=== PATIENT | female | born 1960 | race African-American/Black ===

== ENCOUNTER 2016-08-27 08:43 | Emergency (ER) | payer MEDICARE, MEDICAID ==
[2015-07-23 07:00] VITALS: BMI 25.7
[~2016-08-27 08:43] MED LIST: ASPIRIN325 MG PO; ASPIRIN81 MG PO; ATIVAN2 MG PO; CATAPRES0.1 MG PO; CELEXA20 MG PO; CHERATUSSIN AC473 ML PO; DIABETA2.5 MG PO; GLUCOPHAGE500 MG PO; HUMULIN R100 U/ML SC; HYDROCODON-ACE1 EAC7 PO; HYDROCODONE-APA1 TAB PO; ISOSORBIDE DINI30 MG PO; K-DUR20 MEQ PO; LEVAQUIN500 MG PO; LISINOPRIL10 MG NG; LISINOPRIL5 MG PO; LOPRESSOR25 MG PO; MACROBID100 MG PO; MEDROL DOSE PACK4 MG PO; METHOTREXATE2.5 MG; METHOTREXATE2.5 MG PO; METOPROLOL TAR100 MG PO; MICRO-K10 MEQ PO; NITROSTAT0.4 MG SL; NORCO 10/325 TA1 TA1 PO; NORVASC5 MG PO; NYSTATIN1 PWD TOPICAL; OXYCONTIN30 MG PO; PEPCID20 MG PO; PERCOCET 10/3251 TA1 PO; PLAVIX75 MG PO; PRAVACHOL40 MG PO; PREDNISONE10 MG PO; SINGULAIR10 MG PO; XANAX2 MG PO; ZANAFLEX4 MG PO; ZOFRAN4 MG PO
== END 2016-08-27 10:20 | disposition home or self-care (01) ==
LOC: D.ER 08:43
DX: S69.91XA Unspecified injury of right wrist, hand and finger(s), initial encounter (principal); X58.XXXA Exposure to other specified factors, initial encounter; Y93.89 Activity, other specified; Y92.89 Other specified places as the place of occurrence of the external cause

== ENCOUNTER 2016-09-25 01:27 | Emergency (ER) | payer MEDICARE, MEDICAID ==
[2015-07-23 07:00] VITALS: BMI 25.7
== END 2016-09-25 03:27 | disposition home or self-care (01) ==
LOC: D.ER 01:27
DX: M62.838 Other muscle spasm (principal); Z95.1 Presence of aortocoronary bypass graft; I50.9 Heart failure, unspecified

== ENCOUNTER 2016-09-27 17:01 | Emergency (ER) | payer MEDICARE, MEDICAID ==
[2015-07-23 07:00] VITALS: BMI 25.7
== END 2016-09-27 18:19 | disposition left against medical advice (07) ==
LOC: D.ER 17:01
DX: R52 Pain, unspecified (principal)

== ENCOUNTER → 2016-10-28 09:52 | Outpatient (CLI) | payer MEDICARE, MEDICAID ==
[2015-07-23 07:00] VITALS: BMI 25.7
== END | disposition home or self-care (01) ==
LOC: D.MRI 09:52
DX: R20.0 Anesthesia of skin (principal)

== ENCOUNTER 2016-11-22 19:37 | Emergency (ER) | payer MEDICARE ==
[2015-07-23 07:00] VITALS: BMI 25.7
== END 2016-11-22 20:50 | disposition home or self-care (01) ==
LOC: D.ER 19:37
DX: F41.9 Anxiety disorder, unspecified (principal); M54.2 Cervicalgia; F11.10 Opioid abuse, uncomplicated

== ENCOUNTER 2016-12-19 10:01 | Emergency (ER) | payer MEDICARE ==
[2015-07-23 07:00] VITALS: BMI 25.7
== END 2016-12-19 11:43 | disposition home or self-care (01) ==
LOC: D.ER 10:01
DX: G89.18 Other acute postprocedural pain (principal); M43.22 Fusion of spine, cervical region; Z95.1 Presence of aortocoronary bypass graft; Z95.5 Presence of coronary angioplasty implant and graft

== ENCOUNTER 2017-06-04 05:17 | Emergency (ER) | payer MEDICARE ==
[2015-07-23 07:00] VITALS: BMI 25.7
== END 2017-06-04 06:01 | disposition home or self-care (01) ==
LOC: D.ER 05:17
DX: S46.911A Strain of unspecified muscle, fascia and tendon at shoulder and upper arm level, right arm, initial encounter (principal); X50.0XXA Overexertion from strenuous movement or load, initial encounter; Y93.89 Activity, other specified; Y92.019 Unspecified place in single-family (private) house as the place of occurrence of the external cause

== ENCOUNTER 2017-07-16 19:06 | Emergency (ER) | payer MEDICARE ==
[2015-07-23 07:00] VITALS: BMI 25.7
== END 2017-07-16 20:10 | disposition home or self-care (01) ==
LOC: D.ER 19:06
DX: M54.12 Radiculopathy, cervical region (principal); M25.512 Pain in left shoulder; I50.9 Heart failure, unspecified; F17.200 Nicotine dependence, unspecified, uncomplicated

== ENCOUNTER 2017-09-08 12:12 | Inpatient (IN) | payer MEDICARE, MEDICAID ==
[~2017-09-08] VITALS: Ht 179.1 cm; Wt 78.6 kg
[~2017-09-08 12:12] MED LIST changes: -ISOSORBIDE DINI30 MG PO; +ISOSORBIDE MONO30 M1 PO; +XANAX1 MG PO; -XANAX2 MG PO
[2017-09-08 13:00] LABS: BASOPHILS 0.2 % (0-2); EOSINOPHILS 1.4 % (0-7); HEMATOCRIT 43.3 % (36.0-48.0); HEMOGLOBIN 14.9 g/dL (12-16); IMMATURE GRANULOCYTES 0.3 % (0-5); LYMPHOCYTES 17.3 % (15-50); MCH 29.4 pg (26.0-34.0); MCHC 34.4 g/dL (31.0-37.0); MCV 85.6 fL (80.0-100.0); MEAN PLATELET VOLUME 11.4 fL (7.4-10.4); MONOCYTES 7.1 % (2-11); NEUTROPHILS 73.7 % (40-80); RBC 5.06 10x6/uL (4.00-5.40); RDW 14.9 % (11.5-14.5)
[2017-09-08 13:02] LABS: PLATELET COUNT 150 10x3/uL (130-400)
[2017-09-08 13:28] LABS: ANION GAP 13.5 mmol/L (8-16); BILIRUBIN - TOTAL 1.4 mg/dL (0.2-1.3); CALCIUM 8.4 mg/dL (8.5-10.1); CARBON DIOXIDE 23.3 mmol/L (21.0-32.0); POTASSIUM - SERUM 3.8 mmol/L (3.5-5.1); PROTEIN - SERUM 7.5 g/dL (6.4-8.2)
[2017-09-08 13:41] LABS: HCG URINE NEGATIVE (NEGATIVE)
[2017-09-08 13:49] LABS: APPEARANCE HAZY (CLEAR); COLOR YELLOW (YELLOW); GLUCOSE NEGATIVE (NEGATIVE); NITRITE NEGATIVE (NEGATIVE); PROTEIN NEGATIVE (NEGATIVE)
[2017-09-08 13:50] LABS: BILIRUBIN NEGATIVE (NEGATIVE); KETONE NEGATIVE (NEGATIVE)
[2017-09-08 13:53] LABS: BACTERIA MODERATE /hpf (NONE SEEN); EPITHELIAL CELLS 0-5 /hpf (0-5); MUCUS <1+ /lpf (NONE SEEN); WHITE CELLS - URINE 25-50 /hpf (0-5)
[2017-09-08 15:34] VITALS: BP 125/84
[2017-09-08] MEDS ORDERED: NORVASC10 MG PO (16:01)
[2017-09-08] MEDS ORDERED: LIPITOR20 MG PO (16:18)
[2017-09-08] MEDS ORDERED: METOPROLOL TART25 MG PO (16:26)
[2017-09-08 20:33] VITALS: BP 108/66
[2017-09-09 05:38] LABS: BASOPHILS 0.1 % (0-2); HEMATOCRIT 40.5 % (36.0-48.0); HEMOGLOBIN 13.6 g/dL (12-16); IMMATURE GRANULOCYTES 0.3 % (0-5); LYMPHOCYTES 24.1 % (15-50); MCH 29.1 pg (26.0-34.0); MCHC 33.6 g/dL (31.0-37.0); MCV 86.7 fL (80.0-100.0); MEAN PLATELET VOLUME 11.5 fL (7.4-10.4); MONOCYTES 6.4 % (2-11); NEUTROPHILS 68.1 % (40-80); PLATELET COUNT 132 10x3/uL (130-400); RBC 4.67 10x6/uL (4.00-5.40); RDW 14.8 % (11.5-14.5)
[2017-09-09 05:41] LABS: WBC 7.8 10x3/uL (4.8-10.8)
[2017-09-09 05:50] VITALS: BP 140/84
[2017-09-09 06:12] LABS: ALBUMIN 2.6 g/dL (3.4-5.0); ALKALINE PHOSPHATASE 81 U/L (46-116); ALT (SGPT) 38 U/L (10-68); BILIRUBIN - TOTAL 0.79 mg/dL (0.2-1.3); CALC OSMOLALITY 284 mosm/kg (275-300); CALCIUM 8.2 mg/dL (8.5-10.1); CARBON DIOXIDE 25.3 mmol/L (21.0-32.0); CHLORIDE - SERUM 104 mmol/L (98-107); CREATININE - SERUM 0.8 mg/dL (0.6-1.3); GLUCOSE 162 mg/dL (74-106); POTASSIUM - SERUM 4.2 mmol/L (3.5-5.1); PROTEIN - SERUM 6.8 g/dL (6.4-8.2); SODIUM 140 mmol/L (136-145); UREA NITROGEN 18 mg/dL (7-18); eGFR NON AFRICAN AMERICAN 78 mL/min (90-120)
[2017-09-09 08:13] VITALS: BP 135/82
[2017-09-09 11:25] VITALS: BP 114/64
[2017-09-09 15:44] VITALS: BP 128/55
[2017-09-09 20:30] VITALS: BP 129/93
[2017-09-10 00:30] VITALS: BP 110/79
[2017-09-10 04:30] VITALS: BP 122/89
[2017-09-10 08:29] VITALS: BP 100/60
[2017-09-10 11:31] VITALS: BP 110/77
[2017-09-10 13:22] LABS: BASOPHILS 0.2 % (0-2); EOSINOPHILS 2.7 % (0-7); HEMATOCRIT 40.3 % (36.0-48.0); HEMOGLOBIN 13.1 g/dL (12-16); IMMATURE GRANULOCYTES 0.2 % (0-5); MCH 28.9 pg (26.0-34.0); MCHC 32.5 g/dL (31.0-37.0); MEAN PLATELET VOLUME 11.1 fL (7.4-10.4); MONOCYTES 5.9 % (2-11); PLATELET COUNT 152 10x3/uL (130-400); RBC 4.54 10x6/uL (4.00-5.40); WBC 9.6 10x3/uL (4.8-10.8)
[2017-09-10 13:23] LABS: MCV 88.8 fL (80.0-100.0)
[2017-09-10 13:40] LABS: ANION GAP 14.5 mmol/L (8-16); CREATININE - SERUM 0.9 mg/dL (0.6-1.3); POTASSIUM - SERUM 4.5 mmol/L (3.5-5.1)
[2017-09-10 15:47] VITALS: BP 98/75
[2017-09-10 20:30] VITALS: BP 100/63
[2017-09-11 00:30] VITALS: BP 129/85
[2017-09-11 04:30] VITALS: BP 123/85
[2017-09-11 05:07] LABS: BASOPHILS 0.2 % (0-2); EOSINOPHILS 4.3 % (0-7); HEMATOCRIT 39.4 % (36.0-48.0); IMMATURE GRANULOCYTES 0.2 % (0-5); LYMPHOCYTES 32.6 % (15-50); MCH 28.6 pg (26.0-34.0); MONOCYTES 8.9 % (2-11); NEUTROPHILS 53.8 % (40-80); PLATELET COUNT 177 10x3/uL (130-400); RBC 4.54 10x6/uL (4.00-5.40); RDW 14.6 % (11.5-14.5); WBC 8.3 10x3/uL (4.8-10.8)
[2017-09-11 05:09] LABS: MCV 86.8 fL (80.0-100.0)
[2017-09-11 05:29] LABS: CALC OSMOLALITY 285 mosm/kg (275-300); CARBON DIOXIDE 27.3 mmol/L (21.0-32.0); CHLORIDE - SERUM 109 mmol/L (98-107); CREATININE - SERUM 0.8 mg/dL (0.6-1.3); SODIUM 144 mmol/L (136-145); UREA NITROGEN 16 mg/dL (7-18); eGFR NON AFRICAN AMERICAN 78 mL/min (90-120)
[2017-09-11 05:38] LABS: GLUCOSE 69 mg/dL (74-106)
[2017-09-11 08:21] VITALS: BP 138/85
[2017-09-11 12:15] VITALS: BP 133/101
[2017-09-11 17:24] VITALS: BP 126/98
[2017-09-11 20:00] VITALS: BP 102/81
[2017-09-12 05:59] LABS: BASOPHILS 0.2 % (0-2); EOSINOPHILS 3.8 % (0-7); HEMATOCRIT 40.5 % (36.0-48.0); HEMOGLOBIN 13.5 g/dL (12-16); IMMATURE GRANULOCYTES 0.7 % (0-5); LYMPHOCYTES 38.6 % (15-50); MCH 28.9 pg (26.0-34.0); MCHC 33.3 g/dL (31.0-37.0); MCV 86.7 fL (80.0-100.0); MEAN PLATELET VOLUME 11.4 fL (7.4-10.4); MONOCYTES 10.5 % (2-11); NEUTROPHILS 46.2 % (40-80); RBC 4.67 10x6/uL (4.00-5.40); RDW 14.4 % (11.5-14.5); WBC 8.4 10x3/uL (4.8-10.8)
[2017-09-12 06:23] LABS: CALC OSMOLALITY 282 mosm/kg (275-300); CALCIUM 8.2 mg/dL (8.5-10.1); CARBON DIOXIDE 26.4 mmol/L (21.0-32.0); CHLORIDE - SERUM 107 mmol/L (98-107); CREATININE - SERUM 0.8 mg/dL (0.6-1.3); POTASSIUM - SERUM 3.7 mmol/L (3.5-5.1); SODIUM 143 mmol/L (136-145); UREA NITROGEN 12 mg/dL (7-18); eGFR NON AFRICAN AMERICAN 78 mL/min (90-120)
[2017-09-12 06:26] LABS: PLATELET COUNT 222 10x3/uL (130-400)
[2017-09-12 06:29] LABS: GLUCOSE 55 mg/dL (74-106)
[2017-09-12 06:46] VITALS: BP 77/41
[2017-09-12 08:51] VITALS: BP 96/70
[2017-09-12 12:29] VITALS: BP 121/88
[2017-09-12 13:55] VITALS: Ht 179.1 cm; Wt 78.6 kg
[2017-09-12] MEDS ORDERED: ZITHROMAX250 MG PO (13:58)
[2017-09-12] MEDS ORDERED: TAMIFLU75 MG PO (13:59)
[2017-09-12 17:28] VITALS: BP 121/85
== END 2017-09-12 17:47 | disposition home or self-care (01) | DRG 194 ==
LOC: D.ER 12:12 → D.EDHOLD 14:33 → D.M2 14:33
PROVIDERS: Family Medicine
DX: J10.00 Influenza due to other identified influenza virus with unspecified type of pneumonia (principal); N39.0 Urinary tract infection, site not specified; J98.11 Atelectasis; F41.8 Other specified anxiety disorders; E11.65 Type 2 diabetes mellitus with hyperglycemia; I10 Essential (primary) hypertension; M06.9 Rheumatoid arthritis, unspecified; I25.10 Atherosclerotic heart disease of native coronary artery without angina pectoris; Z95.5 Presence of coronary angioplasty implant and graft; Z95.1 Presence of aortocoronary bypass graft; Z86.73 Personal history of transient ischemic attack (TIA), and cerebral infarction without residual deficits

== ENCOUNTER 2017-10-09 01:34 | Emergency (ER) | payer MEDICARE ==
[2017-09-12 13:55] VITALS: BMI 24.5
[~2017-10-09 01:34] MED LIST changes: +LIPITOR20 MG PO; +METOPROLOL TART25 MG PO; +NORVASC10 MG PO; +TAMIFLU75 MG PO; +ZITHROMAX250 MG PO
== END 2017-10-09 02:53 | disposition home or self-care (01) ==
LOC: D.ER 01:34
DX: M54.12 Radiculopathy, cervical region (principal); M54.2 Cervicalgia

== ENCOUNTER 2017-12-29 15:14 | Inpatient (IN) | payer MEDICARE ==
[~2017-12-29] VITALS: Ht 179.1 cm; Wt 82.3 kg
--- NOTE | ~2017-12-29 | EC ---
PATIENT:MAE CHAHAL DATE OF SERVICE: 12/30/17 SEX: F MEDICAL RECORD: [id number] DATE OF : 58 LOCATION:D.MS [facility] AGE OF PATIENT: 57 ADMISSION DATE: 12/30/17 REFERRING PHYSICIAN: INTERPRETING PHYSICIAN: ROMERO OBRIEN MD ECHOCARDIOGRAM REPORT ECHO CHARGES 4 ECHO COMPLETE Date: 01/01 CLINICAL DIAGNOSIS: BRONCHITS, PLEURITIC CP ECHOCARDIOGRAPHIC MEASUREMENTS (adult normal given) AC root (d.<3.7cm) 2.4 cm LV Septum d (<1.2 cm> 1.4 cm Valve Excursion 1.5 cm LV Septum (systole) 2.0 cm Left Atria (s.<4.0cm> 3.9 cm LVPW d(<1.2cm) 0.9 cm RV (d.<2.3cm) 2.6 cm LVPW (sytole) 1.4 cm LV diastole(<5.6CM) 4.5 cm MV E-F(>70mm/sec) cm LV systole 2.8 cm LVOT Diameter 2.0 cm MV exc.(>10mm) cm Est.ejection fraction (50-75%) % DOPPLER: LVIT cm/sec A 66 cm/sec E 80 cm/sec LA cm/sec RVSP 39 mmHg LVOT 108 cm/sec AOP1/2T m/s Asc. Ao 127 cm/sec RVOT 64 cm/sec RA cm/sec PA 67 cm/sec AV Gradient Peak 6.4 mmHg AV Mean 3.5 mmHg AV Area 2.5 cm MV Gradient Peak 4.2 mmHg MV Mean 1.2 mmHg MV Area cm COMMENTS: Partner Marketing Intern: Murphy DYER Survival Equipment Repairer: Greg Alvares TAPE# PACS Pericardial Effusion N DATE OF SERVICE: 01/02/2018 FINDINGS: 1. Left ventricular chamber size is within normal limits. Left ventricular systolic function is normal. Overall ejection fraction estimated at 60%. 2. Left atrium is within normal limits at 4.0 cm. Right atrium and right ventricle chamber sizes are mildly dilated. 3. Valvular structures have normal structure and motion. 4. Doppler interrogation reveals moderate mitral regurgitation, moderate tricuspid regurgitation, no other valvular insufficiency or stenosis. Pulmonary ECHOCARDIOGRAM REPORT [id number] MAE CHAHAL systolic pressure is estimated at 39 mmHg. 5. No evidence of pericardial effusion or left ventricular thrombus. TRANSINT:[id number] Voice Confirmation ID: [id number] DOCUMENT ID: [id number] ROMERO OBRIEN MD at 1713 CC: [id number] DICTATION DATE: 01/02/18 1244 LOAN REVIEWER: 01/02/18 1254 DIS IN 01/02/18 [facility] [address] [id number]
--- NOTE | ~2017-12-29 | MORECARE ---
CASE MANAGEMENT DISCHARGE SUMMARY PATIENT: SOLANGE WELLS UNIT: [id number] ADM DATE: 12/30/17 AGE: 57 : 58 SEX: F ROOM/BED: D.2204 AUTHOR: CASE, TUBE BUFFER PHYSICIAN: REFERRING PHYSICIAN: SUKUMAR ESPINOZA MD DATE OF SERVICE: 12/30/17 Discharge Plan Patient Name: SOLANGE WELLS Facility[facility]:[place] : 1960 Planned Disposition: Home Anticipated Discharge Date: 01/02/18 Discharge Date: 01/02/2018 Expected LOS: 3 Initial Reviewer: [email or web address] Initial Review Date: 12/29/2017 Generated: 01/04/18 11:26 am Comments DCP- Discharge Planning Updated by [email or web address]: Gertrude Senior on 01/02/18 11:[address] Patient Name: SOLANGE WELLS Admission Status: ER Accout number: [id number] Admission Date: 12-30-2017 : 1960 Admission Diagnosis: Attending: SUKUMAR ESPINOZA Current LOS: 3 Anticipated DC Date: 01-02-2018 Planned Disposition: Home Primary Insurance: MEDICARE A & B Discharge Planning Comments: CM met with patient about discharge planning needs. Pt states plans to dc home. Friend Candi to package pick up. Denies any needs at this time. CM will continue to follow and assist as needed with dc planning/needs. Title Vehicle Service Attendant: Gertrude Senior DCPIA - Discharge Planning Initial Assessment Updated by [email or web address]: Gertrude Senior on 01/02/18 12:15 pm * Is the patient Alert and Oriented? Yes * How many steps to enterexit or inside your home? * PCP Jose Antonio * Pharmacy [facility] * Preadmission Environment Home Alone * ADLs Independent * Equipment None * List name and contact numbers for known caregivers / representatives who currently or will assist patient after discharge: hector Sierra, * Additional services required to return to the preadmission environment? No * Can the patient safely return to the preadmission environment? Yes * Has this patient been hospitalized within the prior 30 days at any hospital? No Coverage Notice Reviewer: [id number] Teo Schafer Notice Issued Date-Time: 12/30/2017 15:00 Notice Type: Medicare Outpatient Observation Notice Notice Delivered To: Patient Relationship to Patient: Self Print And Pattern Designer Name: Solange Wells Delivery Method: - Emelia Days: Prior Verbal Notification: Recipient Understood Notice: Recipient Signature: Med Rec Note Co-signed by Attending: Coverage Notice Comment: Reviewer: [email or web address] Teo Senior Notice Issued Date-Time: 01/02/2018 12:11 Notice Type: IM Discharge Notice Notice Delivered To: Patient Relationship to Patient: Self Print And Pattern Designer Name: Delivery Method: HAND - Hand Delivered Emelia Days: Prior Verbal Notification: Recipient Understood Notice: Yes Recipient Signature: Yes Med Rec Note Co-signed by Attending: Coverage Notice Comment: Patient Name: SOLANGE WELLS Page [phone] All edits/amendments must be made on the electronic document DICTATION DATE: 01/04/18 1025 TACTICAL DEBRIEFER OFFICER: 01/04/18 1025 RPT#: [id number] DC DATE:01/02/18 STATUS: DIS IN [facility] [address] [place] [address] END OF REPORT
[2017-12-29 15:50] LABS: BASOPHILS 0.3 % (0-2); EOSINOPHILS 1.5 % (0-7); HEMATOCRIT 46.5 % (36.0-48.0); HEMOGLOBIN 16.2 g/dL (12-16); IMMATURE GRANULOCYTES 0.5 % (0-5); LYMPHOCYTES 29.6 % (15-50); MCHC 34.8 g/dL (31.0-37.0); MCV 86.1 fL (80.0-100.0); MEAN PLATELET VOLUME 10.8 fL (7.4-10.4); MONOCYTES 8.4 % (2-11); NEUTROPHILS 59.7 % (40-80); PLATELET COUNT 193 10x3/uL (130-400); RDW 14.9 % (11.5-14.5); WBC 7.6 10x3/uL (4.8-10.8)
[2017-12-29 16:11] LABS: ALBUMIN 3.2 g/dL (3.4-5.0); ALKALINE PHOSPHATASE 115 U/L (46-116); ALT (SGPT) 35 U/L (10-68); BILIRUBIN - TOTAL 1.37 mg/dL (0.2-1.3); CALC OSMOLALITY 273 mosm/kg (275-300); CALCIUM 8.4 mg/dL (8.5-10.1); CARBON DIOXIDE 27.1 mmol/L (21.0-32.0); CHLORIDE - SERUM 105 mmol/L (98-107); CREATININE - SERUM 0.9 mg/dL (0.6-1.3); GLUCOSE 88 mg/dL (74-106); POTASSIUM - SERUM 3.4 mmol/L (3.5-5.1); PROTEIN - SERUM 7.4 g/dL (6.4-8.2); SODIUM 138 mmol/L (136-145); UREA NITROGEN 9 mg/dL (7-18); eGFR NON AFRICAN AMERICAN 68 mL/min (90-120)
[2017-12-29 16:21] LABS: CKMB 9.2 U/L (0.0-3.6); CREATINE KINASE 515 UL (21-215); PRO BNP 287 pg/mL (0-125)
[2017-12-29 16:25] LABS: TROPONIN-I < 0.017 ng/mL (0.000-0.060)
[2017-12-29 16:35] LABS: APTT 31.2 SECONDS (22.8-39.4); INR 1.01 (0.85-1.17); PROTIME 12.9 SECONDS (11.6-15.0)
[2017-12-29 16:51] LABS: D-DIMER-QUANTITATIVE 0.46 ug/mLFEU (0.20-0.54)
[2017-12-29 17:25] VITALS: BP 129/92
[2017-12-29 18:46] VITALS: BP 127/96
[2017-12-29 21:21] LABS: CKMB 7.6 U/L (0.0-3.6); CREATINE KINASE 439 UL (21-215); TROPONIN-I 0.019 ng/mL (0.000-0.060)
[2017-12-29] MEDS ORDERED: NEURONTIN 300300 MG PO (22:07)
[2017-12-29 23:00] VITALS: BP 111/67; Ht 179.1 cm; Wt 82.3 kg
[2017-12-30] VITALS: BP 110/77
[2017-12-30 04:01] LABS: CKMB 10.2 U/L (0.0-3.6); CREATINE KINASE 466 UL (21-215)
[2017-12-30 04:02] LABS: TROPONIN-I < 0.017 ng/mL (0.000-0.060)
[2017-12-30 05:31] VITALS: BP 109/71
[2017-12-30 08:39] LABS: CKMB 10.2 U/L (0.0-3.6); CREATINE KINASE 460 UL (21-215); TROPONIN-I 0.017 ng/mL (0.000-0.060)
[2017-12-30 08:49] VITALS: BP 105/73
[2017-12-30 10:33] LABS: ALBUMIN 2.6 g/dL (3.4-5.0); ANION GAP 17.3 mmol/L (8-16); BILIRUBIN - TOTAL 0.85 mg/dL (0.2-1.3); CALCIUM 7.8 mg/dL (8.5-10.1); CARBON DIOXIDE 24.6 mmol/L (21.0-32.0); CREATININE - SERUM 0.9 mg/dL (0.6-1.3); POTASSIUM - SERUM 3.9 mmol/L (3.5-5.1); PROTEIN - SERUM 6.4 g/dL (6.4-8.2)
[2017-12-30 10:45] LABS: BASOPHILS 0.4 % (0-2); EOSINOPHILS 2.8 % (0-7); HEMATOCRIT 42.9 % (36.0-48.0); HEMOGLOBIN 14.5 g/dL (12-16); IMMATURE GRANULOCYTES 0.4 % (0-5); LYMPHOCYTES 44.6 % (15-50); MCH 29.5 pg (26.0-34.0); MCHC 33.8 g/dL (31.0-37.0); MCV 87.4 fL (80.0-100.0); MEAN PLATELET VOLUME 10.8 fL (7.4-10.4); NEUTROPHILS 40.8 % (40-80); PLATELET COUNT 157 10x3/uL (130-400); RBC 4.91 10x6/uL (4.00-5.40); RDW 14.8 % (11.5-14.5)
[2017-12-30 10:46] LABS: WBC 5.3 10x3/uL (4.8-10.8)
[2017-12-30 12:38] VITALS: BP 136/86
[2017-12-30 16:57] VITALS: BP 106/56
[2017-12-30 20:30] VITALS: BP 119/87
[2017-12-31 04:30] VITALS: BP 123/85
[2017-12-31 05:04] LABS: BASOPHILS 0.2 % (0-2); EOSINOPHILS 0.5 % (0-7); HEMATOCRIT 39.4 % (36.0-48.0); HEMOGLOBIN 13.4 g/dL (12-16); IMMATURE GRANULOCYTES 0.2 % (0-5); LYMPHOCYTES 39.4 % (15-50); MCH 29.8 pg (26.0-34.0); MCV 87.6 fL (80.0-100.0); MEAN PLATELET VOLUME 10.9 fL (7.4-10.4); MONOCYTES 8.8 % (2-11); NEUTROPHILS 50.9 % (40-80); PLATELET COUNT 160 10x3/uL (130-400); RDW 14.9 % (11.5-14.5); WBC 5.9 10x3/uL (4.8-10.8)
[2017-12-31 05:36] LABS: ALBUMIN 2.6 g/dL (3.4-5.0); ANION GAP 9.3 mmol/L (8-16); BILIRUBIN - TOTAL 0.58 mg/dL (0.2-1.3); CALCIUM 7.8 mg/dL (8.5-10.1); CARBON DIOXIDE 27.9 mmol/L (21.0-32.0); CREATININE - SERUM 0.9 mg/dL (0.6-1.3); POTASSIUM - SERUM 4.2 mmol/L (3.5-5.1); PROTEIN - SERUM 5.9 g/dL (6.4-8.2)
[2017-12-31 09:10] VITALS: BP 147/102
[2017-12-31 14:32] VITALS: BP 129/88
[2017-12-31 17:00] VITALS: BP 126/89
[2017-12-31 21:58] VITALS: BP 121/85
[2018-01-01 05:44] LABS: BASOPHILS 0.1 % (0-2); EOSINOPHILS 0.9 % (0-7); HEMATOCRIT 39.1 % (36.0-48.0); HEMOGLOBIN 13.4 g/dL (12-16); IMMATURE GRANULOCYTES 0.4 % (0-5); LYMPHOCYTES 37.4 % (15-50); MCH 29.7 pg (26.0-34.0); MCHC 34.3 g/dL (31.0-37.0); MCV 86.7 fL (80.0-100.0); MEAN PLATELET VOLUME 11.6 fL (7.4-10.4); MONOCYTES 8.3 % (2-11); NEUTROPHILS 52.9 % (40-80); PLATELET COUNT 167 10x3/uL (130-400); RBC 4.51 10x6/uL (4.00-5.40); RDW 14.8 % (11.5-14.5); WBC 6.8 10x3/uL (4.8-10.8)
[2018-01-01 06:08] LABS: ALBUMIN 2.7 g/dL (3.4-5.0); ALKALINE PHOSPHATASE 93 U/L (46-116); ALT (SGPT) 34 U/L (10-68); BILIRUBIN - TOTAL 0.46 mg/dL (0.2-1.3); CALC OSMOLALITY 277 mosm/kg (275-300); CALCIUM 8.2 mg/dL (8.5-10.1); CARBON DIOXIDE 26.3 mmol/L (21.0-32.0); CHLORIDE - SERUM 109 mmol/L (98-107); CREATININE - SERUM 0.7 mg/dL (0.6-1.3); GLUCOSE 80 mg/dL (74-106); POTASSIUM - SERUM 3.7 mmol/L (3.5-5.1); PROTEIN - SERUM 6.4 g/dL (6.4-8.2); SODIUM 141 mmol/L (136-145); UREA NITROGEN 8 mg/dL (7-18); eGFR NON AFRICAN AMERICAN > 90 mL/min (90-120)
[2018-01-01 06:35] VITALS: BP 138/95
[2018-01-01 09:12] VITALS: BP 120/86
[2018-01-01 23:15] VITALS: BP 135/89
[2018-01-02 05:00] VITALS: BP 133/99
[2018-01-02 06:19] LABS: BASOPHILS 0.3 % (0-2); EOSINOPHILS 1.4 % (0-7); HEMATOCRIT 42.9 % (36.0-48.0); HEMOGLOBIN 14.6 g/dL (12-16); IMMATURE GRANULOCYTES 0.3 % (0-5); LYMPHOCYTES 38.6 % (15-50); MCH 29.6 pg (26.0-34.0); MCV 86.8 fL (80.0-100.0); MONOCYTES 8.5 % (2-11); NEUTROPHILS 50.9 % (40-80); PLATELET COUNT 184 10x3/uL (130-400); RBC 4.94 10x6/uL (4.00-5.40); RDW 14.8 % (11.5-14.5); WBC 7.3 10x3/uL (4.8-10.8)
[2018-01-02 06:38] LABS: ALBUMIN 2.8 g/dL (3.4-5.0); ANION GAP 9.7 mmol/L (8-16); BILIRUBIN - TOTAL 0.51 mg/dL (0.2-1.3); CALCIUM 8.3 mg/dL (8.5-10.1); CARBON DIOXIDE 26.7 mmol/L (21.0-32.0); POTASSIUM - SERUM 3.4 mmol/L (3.5-5.1); PROTEIN - SERUM 6.8 g/dL (6.4-8.2)
[2018-01-02 06:40] LABS: CREATININE - SERUM 0.9 mg/dL (0.6-1.3)
[2018-01-02 08:37] VITALS: BP 134/95
[2018-01-02] MEDS ORDERED: LEVAQUIN500 MG PO (11:17)
[2018-01-02 12:29] VITALS: BP 125/90
[2018-01-02] MEDS ORDERED: ROBAXIN-750750 MG PO (18:46)
[2018-01-02] MEDS ORDERED: PREDNISONE20 MG PO (18:46)
== END 2018-01-02 14:50 | disposition home or self-care (01) | DRG 312 ==
LOC: D.ER 15:14 → OBSVTIME 20:31 → D.EDHOLD 20:31 → D.MS 20:31
PROVIDERS: Family Medicine
DX: R55 Syncope and collapse (principal); J20.9 Acute bronchitis, unspecified; R09.82 Postnasal drip; E11.65 Type 2 diabetes mellitus with hyperglycemia; Z79.4 Long term (current) use of insulin; I10 Essential (primary) hypertension; I25.10 Atherosclerotic heart disease of native coronary artery without angina pectoris; Z95.1 Presence of aortocoronary bypass graft; I08.1 Rheumatic disorders of both mitral and tricuspid valves; K21.9 Gastro-esophageal reflux disease without esophagitis; F41.9 Anxiety disorder, unspecified; M06.9 Rheumatoid arthritis, unspecified; Z87.891 Personal history of nicotine dependence

== ENCOUNTER 2018-01-02 18:02 | Emergency (ER) | payer MEDICARE ==
[~2018-01-02] VITALS: Ht 179.1 cm; Wt 82.3 kg
[~2018-01-02 18:02] MED LIST changes: +NEURONTIN 300300 MG PO
[2018-01-02 18:08] VITALS: Ht 179.1 cm; Wt 82.3 kg
[2018-01-02] MEDS ORDERED: ROBAXIN-750750 MG PO (18:46)
[2018-01-02] MEDS ORDERED: PREDNISONE20 MG PO (18:46)
[2018-01-02 19:40] VITALS: BP 132/73
== END 2018-01-02 19:40 | disposition home or self-care (01) ==
LOC: D.ER 18:02
DX: M25.511 Pain in right shoulder (principal); Z86.73 Personal history of transient ischemic attack (TIA), and cerebral infarction without residual deficits; E11.9 Type 2 diabetes mellitus without complications; I10 Essential (primary) hypertension; K21.9 Gastro-esophageal reflux disease without esophagitis

== ENCOUNTER 2018-01-26 12:33 | Emergency (ER) | payer MEDICARE ==
[~2018-01-26] VITALS: Ht 179.1 cm; Wt 83.6 kg
[~2018-01-26 12:33] MED LIST changes: +PREDNISONE20 MG PO; +ROBAXIN-750750 MG PO
[2018-01-26 13:03] VITALS: BP 157/112; Ht 179.1 cm; Wt 83.6 kg
[2018-01-26] MEDS ORDERED: HYDROCODONE-APA1 TAB PO (16:37)
== END 2018-01-26 16:49 | disposition home or self-care (01) ==
LOC: D.ER 12:33
DX: M54.12 Radiculopathy, cervical region (principal); Z86.73 Personal history of transient ischemic attack (TIA), and cerebral infarction without residual deficits; I10 Essential (primary) hypertension

== ENCOUNTER 2018-02-16 12:38 | Emergency (ER) | payer MEDICARE ==
[~2018-02-16] VITALS: Ht 179.1 cm; Wt 81.6 kg
[2018-02-16 12:52] VITALS: Ht 179.1 cm; Wt 81.6 kg
[2018-02-16 14:22] LABS: BASOPHILS 0.2 % (0-2); EOSINOPHILS 0.1 % (0-7); HEMATOCRIT 45.7 % (36.0-48.0); HEMOGLOBIN 15.7 g/dL (12-16); IMMATURE GRANULOCYTES 0.6 % (0-5); LYMPHOCYTES 11.1 % (15-50); MCH 30.1 pg (26.0-34.0); MCHC 34.4 g/dL (31.0-37.0); MCV 87.7 fL (80.0-100.0); MONOCYTES 5.6 % (2-11); NEUTROPHILS 82.4 % (40-80); PLATELET COUNT 213 10x3/uL (130-400); RBC 5.21 10x6/uL (4.00-5.40); WBC 10.6 10x3/uL (4.8-10.8)
[2018-02-16 14:29] LABS: INR 0.97 (0.85-1.17); PROTIME 12.5 SECONDS (11.6-15.0)
[2018-02-16 14:39] LABS: ALBUMIN 3.2 g/dL (3.4-5.0); ALKALINE PHOSPHATASE 91 U/L (46-116); ALT (SGPT) 30 U/L (10-68); BILIRUBIN - TOTAL 1.12 mg/dL (0.2-1.3); CALC OSMOLALITY 283 mosm/kg (275-300); CALCIUM 8.5 mg/dL (8.5-10.1); CARBON DIOXIDE 25.9 mmol/L (21.0-32.0); CHLORIDE - SERUM 107 mmol/L (98-107); CREATININE - SERUM 1.2 mg/dL (0.6-1.3); POTASSIUM - SERUM 4.3 mmol/L (3.5-5.1); PROTEIN - SERUM 7.5 g/dL (6.4-8.2); SODIUM 141 mmol/L (136-145); UREA NITROGEN 14 mg/dL (7-18); eGFR NON AFRICAN AMERICAN 49 mL/min (90-120)
[2018-02-16 14:40] LABS: GLUCOSE 137 mg/dL (74-106)
[2018-02-16 14:49] LABS: C-REACTIVE PROTEIN 0.4 mg/dL (0.0-0.9); CKMB 3.6 U/L (0.0-3.6); CREATINE KINASE 119 UL (21-215)
[2018-02-16 14:53] LABS: TROPONIN-I < 0.017 ng/mL (0.000-0.060)
[2018-02-16 16:15] VITALS: BP 118/72
== END 2018-02-16 16:16 | disposition home or self-care (01) ==
LOC: D.ER 12:38
PROVIDERS: Family Medicine
DX: M66.0 Rupture of popliteal cyst (principal); M79.605 Pain in left leg; Z86.73 Personal history of transient ischemic attack (TIA), and cerebral infarction without residual deficits; I10 Essential (primary) hypertension; F17.200 Nicotine dependence, unspecified, uncomplicated

== ENCOUNTER 2018-08-31 13:13 | Outpatient (CLI) | payer MEDICARE ==
[~2018-08-31] VITALS: Ht 179.1 cm; Wt 68.2 kg
--- NOTE | ~2018-08-31 | HEMODYNAMI ---
PATIENT:MAE CHAHAL MEDICAL RECORD: [id number] : 58 LOCATION:[facility] ADMISSION DATE: 08/31/18 Generatedon:08/31/201816:18 Patient name: MAE CHAHAL Patient #: [id number] SSN: : 1960 Date of study: 08/31/2018 Page: Of Hemodynamic Procedure Report Patient Data Patient Demographics Procedure consent was obtained First Name: MAE Gender: Female Last Name: FELA : 1960 Patient #: [id number] Age: 58 year(s) Race: Black Additional ID: [id number] Contact details Address: [address] [place] [address] State: [place] City: [facility] Zip code: [address] Past Medical History Allergies Allergen Reaction Date Comments Reported Other 07/23/2015 CODIENE,STATINS,WELLBUTRIN allergy Admission Admission Data Admission Date: 08/31/2018 Admission Time: 13:13 Height (in.): 70.47 BSA: 2.13 (m2) Height (cm.): 179 BMI: 29.34 (kg/m2) Weight (lbs.): 207.24 Weight (kg.): 94 Lab Results Lab Result Date: 08/31/2018 Lab Result Time: 0:00 Biochemistry Name Units Result Min Max BUN mg/dl 22 --(----)-* 7 18 Creatinine mg/dl 1.1 --(--*-)-- 0.6 1.3 CBC Name Units Result Min Max Hemoglobin g/dl 14.3 --(*---)-- 13.5 17.5 Procedure Procedure Types Cath Procedure Diagnostic Procedure LHC LHC w/Coronaries w/Grafts Sedation Charges Moderate Sedation up to 15 minutes PCI Procedure Coronary Stent Coronary Stent Initial Procedure Description Procedure Date Procedure Date: 08/31/2018 Procedure Start Time: 15:56 Procedure End Time: 16:15 Procedure Staff Name Function Baudilio Velasquez MD Performing Physician Liz Guy RT Scrub [facility] RT Monitor Fidelina Roach RT Monitor Christen Molina RN Manager Appointment Procedure Data Cath Procedure Fluoroscopy Diagnostic fluoroscopy Total fluoroscopy Time: 4.1 time: 4.1 min min Diagnostic fluoroscopy Total fluoroscopy dose: 751 dose: 751 mGy mGy Contrast Material Contrast Material Type Amount (ml) Isovue 300 99 Entry Location Entry Primary Successful Side Size Upsize Upsize Entry Closure Succes sful Closure Location (Fr) 1 (Fr) 2 (Fr) Remarks Device Remarks Femoral Right 5 Fr 6 Fr Exoseal artery Short Estimated blood loss: 5 ml Diagnostic catheters Device Type Used For End Catheter Placement MULTIPACK Pigtail 5 Fr LV Angiography catheter MULTIPACK JL 4.0 5Fr Left Coronary catheter Angiography MULTIPACK 3DRC 5Fr Right Coronary catheter Angiography DIAGNOSTIC IM 5Fr Multi-vessel catheter ([id number]) Angiography Procedure Complications No complications Procedure Medications Medication Administration Route Dosage 0.9% NaCl I.V. 100 ml/hr Oxygen etCO2 Nasal cannula 2 l/min Heparin Flush Bag added to field 2 bags (1000units/500ml NS) Lidocaine 2% added to field 20 Versed I.V. 2 mg Fentanyl I.V. 50 mcg Versed I.V. 2 mg Fentanyl I.V. 50 mcg Heparin Bolus I.V. 4000 units Integrilin (Bolus I.V. 8.5 ml 2mg/ml) Hemodynamics Rest BSA: 2.13 (m2) O2 Consumption: Estimated: 190.34 (ml/min) O2 Consumption indexed : Estimated:89.36 (ml/min/m) Heart Rate: 55 (bpm) Pressure Samples Time Site Value (mmHg) Purpose Heart Use Rate(bpm) 15:59 LV 24/20,16 Snapshot 82 Snapshots Pre Cath Intra NCS Post Cath Vital Signs Time Heart Resp SPO2 etCO2 NIBP (mmHg) Rhythm Pain Sedation Rate (ipm) (%) (mmHg) Status Level (bpm) 15:44:59 55 17 98 28 176/114(153) SB 0 (11) 10(A) , No pain 15:49:19 55 19 98 27.7 159/106(131) SB 0 (11) 10(A) , No pain 15:53:33 59 16 100 31.4 163/96(122) SB 0 (11) 9(A) , No pain 15:57:49 57 12 100 33.7 137/93(114) SB 0 (11) 9(A) , No pain 16:01:57 68 12 99 33 135/92(109) NSR 0 (11) 9(A) , No pain 16:06:03 63 12 99 30.7 129/91(101) NSR 0 (11) 9(A) , No pain 16:10:06 66 13 99 33.7 141/96(125) NSR 0 (11) 9(A) , No pain 16:14:14 69 13 100 31.5 139/96(108) NSR 0 (11) 10(A) , No pain Medications Time Medication Route Dose Verified Delivered Reason Notes Effectiveness by by 15:43:36 0.9% NaCl I.V. 100 Hebert Hebert Per physician ml/hr Vijaya Lilly RN RN 15:43:45 Oxygen etCO2 2 Hebert Hebert for low 02 sats Nasal l/min Vijaya Lilly cannula RN RN 15:43:55 Heparin Flush added 2 Hebert Hebert used for Bag to bags Lorigan Vijaya procedure (1000units/500ml field JULES RN NS) 15:44:04 Lidocaine 2% added 20ml Hebert Hebert for local to vial Lorigan Lorigan anesthetic field JULES RN 15:47:12 Versed I.V. 2 mg Baudilio Hebert for sedation Ron Lilly RN 15:47:27 Fentanyl I.V. 50 Baudilio Hebert for sedation mcg Ron Lilly RN 15:52:44 Versed I.V. 2 mg Baudilio Christen for sedation Ron Molina RN 15:52:52 Fentanyl I.V. 50 Baudilio Christen for sedation mcg Ron Molina RN 16:08:05 Heparin Bolus I.V. 4000 Baudilio Mcgheeyla for verif ied units Ron Molina anticoagulation with Dr. DHARA Velasquez 16:08:16 Integrilin I.V. 8.5 Baudilio Christen for waste d (Bolus 2mg/ml) ml Ron Molina antiplatelet 1.5mL RN therapy Procedure Log Time Note 15:27:56 Patient Height : 70.47 inches 15:27:59 Patient Weight : 207.24 lbs 15:28:23 Lab Result : Hemoglobin 14.3 g/dl 15:28:23 Lab Result : Creatinine 1.1 mg/dl 15:28:23 Lab Result : BUN 22 mg/dl 15:29:13 Diagnostic Cath status Elective 15:29:15 Hebert Lilly RN sent for patient. Start room use. 15:29:18 Time tracking: Regular hours (M-F 7:00 - 5:00) 15:29:25 Plan of Care:Hemodynamics will remain stable., Cardiac rhythm will remain stable., Comfort level will be maintained., Respiratory function will remain adequate., Patient/ family verbilizes understanding of procedure., Procedure tolerated without complication., Recovers from procedure without complications.. 15:29:31 Patient received from ED to CCL 2 Alert and oriented. Tansferred to table in Supine position. 15:41:51 Signed procedure consent form obtained from patient. 15:41:52 Warm blankets applied, and angel hugger turned on for patient comfort. 15:41:52 Warm blankets applied, and angel hugger turned on for patient comfort. 15:41:54 Correct patient and procedure confirmed by team. 15:41:55 ECG and BP/O2 sat monitors applied to patient. 15:41:58 Full Disclosure recording started 15:42:03 H&P Date Dictated: 08/31/2018 ER History on chart.. 15:42:04 Pre-procedure instructions explained to patient. 15:42:04 Pre-op teaching completed and patient verbalized understanding. 15:42:06 Patient NPO since Midnight. 15:42:29 PRE LOADED ON PLAVIX IN ER 15:42:31 Patient diabetic? Yes. 15:42:32 If diabetic: On Metformin? No 15:42:34 Previous problem with sedation/anesthesia? No ? 15:42:36 Snore? Yes 15:42:37 Sleep apnea? No 15:42:38 Deviated septum? No 15:42:39 Opens mouth fully? Yes 15:42:40 Sticks out tongue? Yes 15:42:41 Airway obstruction? No ? 15:42:43 Dentures? No ? 15:42:46 Pre procedure: right dorsailis pedis pulse 2+ Normal; easily identifiable; not easily obliterated 15:43:10 IV patent on arrival in left antecubital with 0.9% NaCl at [facility]. 15:43:22 Lab results completed and on chart. 15:43:24 Right groin area was prepped with chlora-prep and draped in sterile fashion 15:43:25 Alarms reviewed by R. N. 15:43:25 Sharps counted by scrub and verified by R.N. 15:43:28 Use device set Femoral Dx 15:43:30 ACIST Syringe (92273) opened to sterile field. 15:43:30 Bag Decanter (2002S) opened to sterile field. 15:43:31 ACIST Hand Control (16839) opened to sterile field. 15:43:31 ACIST Manifold (33219) opened to sterile field. 15:43:32 Tegaderm 4 x 4 (1626W) opened to sterile field. 15:43:34 Medline Cath Pack ([id number]) opened to sterile field. 15:43:34 DIAGNOSTIC WIRE .035 260cm J wire (598359) opened to sterile field. 15:43:36 0.9% NaCl 100 ml/hr I.V. was administered by Hebert Lilly RN; Per physician; 15:43:36 DIAGNOSTIC Multipack 5Fr catheter set (VM5613) opened to sterile field. 15:43:37 SHEATH 5FR [place] (JGZ482) opened to sterile field. 15:43:45 Oxygen 2 l/min etCO2 Nasal cannula was administered by Hebert Lilly RN; for low 02 sats; 15:43:51 Vital chart was started 15:43:55 Heparin Flush Bag (1000units/500ml NS) 2 bags added to field was administered by Hebert Lilly RN; used for procedure; 15:44:02 Zero performed for pressure channel P1 15:44:04 Lidocaine 2% 20ml vial added to field was administered by Hebert Lilly RN; for local anesthetic; 15:44:04 Zero performed for pressure channel P1 15:44:22 Rhythm: sinus bradycardia 15:44:26 Baseline sample Acquired. 15:46:51 Physician arrived 15:46:52 --------ALL STOP TIME OUT------ 15:46:52 Final Timeout: patient, procedure, and site verified with staff and physician. All members of the team are in agreement. 15:46:59 Right groin site verified by team. 15:47:03 Maximum allowable Isovue 300 dose 300ml. Physician notified. (300ml for normal creatinines. For patients with creatinine of 1.7 or higher multiply weight(kg) x 5 divided by creatinine.) 15:47:08 Fire Safety Assessment: A--An alcohol-based skin anteseptic being used preoperatively., C--Open oxygen or nitrous oxide is being used., D--An ESU, laser, or fiber-optic light is being used. 15:47:12 Versed 2 mg I.V. was administered by Hebert Lilly RN; for sedation; 15:47:17 Physical assessment completed. ASA score P 2 - A patient with mild systemic disease as per Baudilio Velasquez MD. 15:47:22 Sedation plan: IV Moderate Sedation Medication:Versed, Fentanyl 15:47:27 Fentanyl 50 mcg I.V. was administered by Hebert Lilly RN; for sedation; 15:52:44 Versed 2 mg I.V. was administered by Christen Molina RN; for sedation; 15:52:52 Fentanyl 50 mcg I.V. was administered by Christen Molina RN; for sedation; 15:56:43 Procedure started. 15:56:46 Local anesthetic to right femoral artery with Lidocaine 2% by Baudilio Velasquez MD.INITIAL ACCESS ONLY 15:56:59 A 5 Fr sheath was inserted into the Right Femoral artery 15:57:09 A MULTIPACK Pigtail 5 Fr catheter was advanced over the wire and used for LV Angiography. 15:59:16 LV hemodynamics recorded. 15:59:19 LV gram done using DANIELSON 15:59:22 Injector settings: Ml/sec: 5, Volume: 15, 15:59:27 EF : 65 % 15:59:32 Catheter removed. 15:59:37 A MULTIPACK JL 4.0 5Fr catheter was advanced over the wire and used for Left Coronary Angiography. 16:00:58 LCA angiography performed. 16:01:02 Injector settings: Ml/sec: 3, Volume: 6, 16:01:05 Catheter removed. 16:01:10 A MULTIPACK 3DRC 5Fr catheter was advanced over the wire and used for Right Coronary Angiography. 16:02:19 MCKNIGHT angiography performed. 16:03:06 Catheter removed. 16:03:16 A DIAGNOSTIC IM 5Fr catheter ([id number]) was advanced over the wire and used for Multi-vessel Angiography. 16:05:40 RCA angiography performed. 16:05:47 Injector settings: Ml/sec: 3, Volume: 6, 16:06:00 Catheter removed. 16:06:34 SHEATH 6FR [place] (DKI819) opened to sterile field. 16:06:35 INFLATOR Merit Basjorge luisCompak (OW6404) opened to sterile field. 16:06:35 CHOICE PT Extra Support 182cm wire ([id number]) opened to sterile field. 16:06:36 GUIDE 6FR XBLAD 4.0 catheter ([id number]) opened to sterile field. 16:06:43 Proceeding to intervention. 16:06:53 Sheath upsized to a 6 Fr Short. 16:07:34 6 Fr XBLAD 4 guide catheter was inserted over the wire 16:08:05 Heparin Bolus 4000 units I.V. was administered by Christen Molina RN; for anticoagulation; verified with Dr. Velasquez 16:08:16 Integrilin (Bolus 2mg/ml) 8.5 ml I.V. was administered by Christen Molina RN; for antiplatelet therapy; wasted 1.5mL 16:08:30 CHOICE PT wire advanced. 16:09:53 Wire advanced across lesion. 16:11:17 Place stent Inflation Number: 1 A BROOK RX 3.5 x 12 stent ([id number]) was prepped and advanced across the LMCA. The stent was deployed at 17 KALYANI for 0:10 (min:sec). 16:12:51 Stent catheter was removed intact over wire. 16:12:51 Wire removed. 16:12:52 Guide catheter removed. 16:12:58 EXOSEAL 6Fr (EX600) opened to sterile field. 16:13:06 Sheath removed intact; hemostasis achieved with Exoseal to the Right Femoral artery. 16:13:07 Procedure ended.(Physican Out) 16:13:40 Fluoroscopy time 04.10 minutes. 16:14:03 Fluoroscopy dose: 751 mGy 16:14:03 Flurop Dose total: 751 16:14:07 Contrast amount:Isovue 300 99ml. 16:14:09 Sharps counted by scrub and verified by R.N. 16:14:10 Insertion/operative site no bleeding no hematoma. 16:14:13 Post-op/insertion site Right Femoral artery dressed using a 4 x 4 and Tegaderm. 16:14:16 Post right femoral artery:stable 16:14:17 Post Procedure Pulses reassessed and unchanged 16:14:20 Post procedure rhythm: unchanged. 16:14:30 Estimated blood loss: 5 ml 16:14:33 Post procedure instruction explained to patient.Patient verbalizes understanding. 16:14:33 Patient needs reinforcement of post procedure teaching. 16:14:46 Procedure type changed to Cath procedure, Diagnostic procedure, LHC, LHC w/Coronaries w/Grafts, Sedation Charges, Moderate Sedation up to 15 minutes, PCI procedure, Coronary Stent, Coronary Stent Initial 16:14:48 Procedure and supply charges have been captured, reviewed, submitted and are correct. 16:14:55 Procedure Complication : No complications 16:14:57 Vital chart was stopped 16:14:57 See physician's report for complete and final results. 16:15:00 Report given to Pre/Post Procedure Room. 16:15:02 Patient transfered to Pre/Post Procedure Room with Stretcher. 16:15:05 Procedure ended. 16:15:05 Full Disclosure recording stopped 16:15:12 ACC-PCI Only Patient was given prescriptions, or instructed by Baudilio Velasquez MD to start/continue the following medications upon discharge: Plavix 16:15:14 End room use (Document Last) Intervention Summary Intervention Notes Time ActionType Lesion and Equipment Used Action# Pressure Duration Attributes 16:11:[address] stent LMCA BROOK RX 3.5 x 1 17 00:10 12 stent ([id number]) Device Usage Item Name Manufacture Quantity Catalog Number Hospital Part Current M inimal Lot# / Charge Number Stock Stock Serial# Code ACIST Syringe Acist 1 59040 830222 422094 791807 2 0 (06709) Medical Systems Inc Bag Decanter Microtek 1 2001S 732699 71090 721879 5 (2001S) Medical Inc. ACIST Hand Acist 1 04644 587234 545683 633608 5 Control Medical (11544) Systems Inc ACIST Manifold Acist 1 53115 884608 293368 686527 5 (00856) Medical Systems Inc Tegaderm 4 x 4 3M 1 1626W 914994 407016 882327 5 (1626W) Medline Cath Medline 1 [id number] 302730 54748 069645 5 Pack ([id number]) DIAGNOSTIC [facility] [place] 1 203007 614660 418784 362939 3 0 WIRE .035 260cm J wire (926681) DIAGNOSTIC Cardinal 1 IK8662 506008 59659 523289 3 0 Multipack 5Fr Health catheter set (KK1306) SHEATH 5FR Terumo 1 NPP556 639729 753592 058314 5 [place] (HJA476) MULTIPACK Cardinal 1 435394 5 Pigtail 5 Fr Health catheter MULTIPACK JL Cardinal 1 917901 5 4.0 5Fr Health catheter MULTIPACK 3DRC Cardinal 1 028339 5 5Fr catheter Health DIAGNOSTIC IM Cardinal 1 [id number] 774265 126753 158647 5 5Fr catheter Health (287427Z) SHEATH 6FR Terumo 1 BCB920 201763 954116 423531 4 0 [place] (MYJ154) INFLATOR Merit Merit 1 VB7497 050072 523505 909408 1 5 [facility] Center[facility]ogn[facility] Medical (EN1800) CHOICE PT [place] 1 [id number] 290139 855757 749613 5 Extra Support Scientific 182cm wire (8942595H8) GUIDE 6FR Cardinal 1 [id number] 370905 711638 079994 3 XBLAD 4.0 Health catheter (26097400) BROOK RX 3.5 x Medtronic 1 [id number] 100325 0074512 052400 5 [id number] 12 stent ([id number]) EXOSEAL 6Fr Cardinal 1 EX600 298016 213125 843376 1 0 (EX600) Health Signature Audit [place] Stage Time Signature Unsigned Intra-Procedure 08/31/2018 Fidelina Roach 4:18:23 PM RT(R) Signatures Monitor : Lorie Chew Signature : RT Date : Time : Monitor : Fidelina Roach RT Signature : Date : Time : [facility] [address] [place] [address]
--- NOTE | ~2018-08-31 | OP ---
PATIENT NAME: MAE CHAHAL MEDICAL RECORD: [id number] :58 LOCATION:D.M2 D.2114 ADMISSION DATE: SURGEON: ROMERO OBRIEN MD DATE OF OPERATION: 08/31/2018 PROCEDURES: 1. PTCA and stent of left main. 2. Left heart catheterization. 3. Selective angiography. 4. MCKNIGHT angiography. 5. Left ventriculogram. INDICATIONS: Angina and coronary artery disease. PROCEDURE PERFORMED: After informed consent was obtained and detailed explanation of the risks, benefits as well as alternative therapies, the patient elected to proceed with angiogram and angioplasty. The right femoral area was prepped and draped in normal sterile fashion. Right femoral artery was cannulated via modified Seldinger technique with placement of 6-Estonian sheath. All catheters exchanged through this sheath. FINDINGS: The left ventriculogram was performed in a standard 30-degree DANIELSON view, reveals good cardiac wall motion throughout all segments. Overall ejection fraction estimated 60%. SELECTIVE CORONARY ANGIOGRAPHY: 1. Left main is with 80% stenosis. This leads to a non-grafted large circumflex. 2. Left anterior descending has previously placed stents. There is 80% in-stent restenosis; however, the MCKNIGHT is grafted to the distal LAD. Distal LAD and MCKNIGHT are widely patent. 3. Right coronary has mild irregularities, but no flow-limiting stenosis. PTCA AND STENT OF THE LEFT MAIN LEADING TO THE NON-GRAFTED CIRCUMFLEX: The stent used was a 3.0 x 12-mm Rolo. Result was 0% residual stenosis. OVERALL IMPRESSION: Successful PTCA and stent of the left main going to the non-grafted circumflex going from 80% initial stenosis to 0% residual. TRANSINT:[id number] Voice Confirmation ID: [id number] DOCUMENT ID: [id number] ROMERO OBRIEN MD CC: [id number] DICTATION DATE: 08/31/18 1621 MICROPHONE OPERATOR: 08/31/18 [address] [place] [address]
--- NOTE | ~2018-08-31 | DS ---
PATIENT:MAE WELLS :58 MEDICAL RECORD: [id number] DISCHARGE SUMMARY ADMISSION DATE: 08/31/18 DISCHARGE DATE: 09/01/18 DATE OF DISCHARGE: 09/01/2018. DISCHARGE DIAGNOSES: 1. Angina. 2. Coronary artery disease. 3. Percutaneous transluminal coronary angioplasty stent, left main leading to non-grafted circumflex this admission. HOSPITAL COURSE: Mrs. Wells presents with anginal symptomatology, found to have significant disease of the left main leading to a non-grafted circumflex, underwent successful PTCA stent of this territory with no recurrent anginal symptomatology. He was discharged home with the addition of aspirin and Plavix to her medical regimen. Follow up with [facility] in 1 month. TRANSINT:[id number] Voice Confirmation ID: [id number] DOCUMENT ID: [id number] ROMERO OBRIEN MD CC: [id number] DICTATION DATE: 09/01/18 0852 AIRWORTHINESS SAFETY INSPECTOR: 09/02/18 0140 DEP CLI 09/01/18 [address] [place] [id number]
[2018-08-31 13:59] LABS: APPEARANCE CLEAR (CLEAR); BILIRUBIN NEGATIVE (NEGATIVE); COLOR YELLOW (YELLOW); GLUCOSE NEGATIVE (NEGATIVE); KETONE NEGATIVE (NEGATIVE); NITRITE NEGATIVE (NEGATIVE); PROTEIN NEGATIVE (NEGATIVE); SPECIFIC GRAVITY 1.015 (1.005-1.020); UROBILINOGEN NORMAL (NORMAL)
[2018-08-31 14:25] LABS: ALBUMIN 3.2 g/dL (3.4-5.0); ALKALINE PHOSPHATASE 87 U/L (46-116); ALT (SGPT) 39 U/L (10-68); BILIRUBIN - TOTAL 0.85 mg/dL (0.2-1.3); CALC OSMOLALITY 290 mosm/kg (275-300); CALCIUM 8.6 mg/dL (8.5-10.1); CARBON DIOXIDE 28.3 mmol/L (21.0-32.0); CHLORIDE - SERUM 103 mmol/L (98-107); CREATININE - SERUM 1.1 mg/dL (0.6-1.3); POTASSIUM - SERUM 3.2 mmol/L (3.5-5.1); PROTEIN - SERUM 7.2 g/dL (6.4-8.2); SODIUM 142 mmol/L (136-145); UREA NITROGEN 22 mg/dL (7-18); eGFR NON AFRICAN AMERICAN 54 mL/min (90-120)
[2018-08-31 14:26] LABS: GLUCOSE 194 mg/dL (74-106)
[2018-08-31 14:30] LABS: HEMATOCRIT 42.4 % (36.0-48.0); HEMOGLOBIN 14.3 g/dL (12-16); LYMPHOCYTES 26.1 % (15-50); MCH 29.5 pg (26.0-34.0); MCHC 33.7 g/dL (31.0-37.0); MCV 87.4 fL (80.0-100.0); MEAN PLATELET VOLUME 11.6 fL (7.4-10.4); NEUTROPHILS 66.5 % (40-80); PLATELET COUNT 203 10x3/uL (130-400); RBC 4.85 10x6/uL (4.00-5.40); RDW 14.2 % (11.5-14.5); WBC 12.2 10x3/uL (4.8-10.8)
[2018-08-31 14:34] LABS: CKMB 6.6 U/L (0.0-3.6); CREATINE KINASE 300 UL (21-215); MAGNESIUM - SERUM 1.9 mg/dL (1.8-2.4); PRO BNP 219 pg/mL (0-125); TROPONIN-I 0.036 ng/mL (0.000-0.060)
--- NOTE | 2018-08-31 16:20 | NUR ---
RECEIVED PT FROM [facility] VIA BED PPPX4 RESP UNLABORED O2 ON 2LPM NC ADEEL C/D/I TO RT IDALMIS
[2018-08-31 17:36] VITALS: BP 136/85
[2018-08-31 17:58] VITALS: BP 128/99; Ht 179.1 cm; Wt 68.2 kg
--- NOTE | 2018-08-31 20:30 | NUR ---
RESUMING PATIENT CARE. PATIENT IS ALERT AND ORIENTED, RESTING COMFORTABLY IN BED. RESPIRATIONS ARE EVEN AND UNLABORED. NO S/S OF DISTRESS. NO C/O PAIN. DENIES NEEDS. CALL LIGHT WITHIN REACH. WILL CPOC.
[2018-08-31 20:56] VITALS: BP 123/89
--- NOTE | 2018-08-31 23:11 | NUR ---
PATIENT RESTING COMFORTABLY IN BED. RESPIRATIONS ARE EVEN AND UNLABORED. NO S/S OF DISTRESS. NO C/O PAIN. DENIES NEEDS. CALL IGHT WITHIN REACH. WILL CPOC.
[2018-09-01 00:35] VITALS: BP 116/80
[2018-09-01 05:00] VITALS: BP 120/76
[2018-09-01 07:40] VITALS: BP 139/97
[2018-09-01] MEDS ORDERED: PERCOCET 10-321 EAC1 PO (07:50)
[2018-09-01] MEDS ORDERED: PLAVIX75 MG PO (08:25)
--- NOTE | 2018-09-01 08:51 | HP ---
PATIENT: MAE WELLS MEDICAL RECORD: [id number] ACCOUNT: [id number] LOCATION:D. D.2114 : 58 ADMISSION DATE: 08/31/18 PCP: AYANA MCBRIDE HISTORY AND PHYSICAL EXAMINATION DATE OF SERVICE: 08/31/2018 DIAGNOSES: 1. Unstable angina. 2. Coronary artery disease. 3. Previous coronary stenting. 4. Previous coronary bypass graft surgery. 5. Hypertension. 6. Hyperlipidemia. 7. Cardiomyopathy. HISTORY OF PRESENT ILLNESS: Mrs. Wells presents with 2 days of increasing anginal symptomatology just like that of her previous angina. Last cardiac stent was 2013. She does have a history of bypass surgery, prior to that. The chest pain is worsening over the past 24 hours, continues to worsen. PHYSICAL EXAMINATION: GENERAL APPEARANCE: Well-nourished, well-developed, appears stated age. Level of distress, comfortable. PSYCHIATRIC: Mental status, alert, normal affect. Orientation, oriented to time, place and person. EYES: Lids and conjunctiva, noninjected. No discharge, no pallor. ENT: Lips, teeth, gums, normal dentition. Oropharynx, no cyanosis, no pallor. NECK: Carotid arteries, bilateral normal upstroke, no bruits, no thrills. JUGULAR VEINS: No jugular venous pressure or distention. CERVICAL LYMPH NODES: Nontender, nonenlarged. THYROID: Not enlarged. Nontender. No nodules. LUNGS: Respiratory effort, unlabored. CHEST: Normal curvature. No thoracic deformity. No chest wall tenderness. Percussion, resonant. Auscultation, clear. No wheezes, no rales, no rhonchi. CARDIOVASCULAR: Precordial exam, nondisplaced. No heaves or pericardial thrills. Rate and rhythm, regular. Heart sounds, normal S1, normal S2. No S3, no gallop, no rub. Systolic murmur, not heard. Diastolic murmur, not heard. EXTREMITIES: No cyanosis, no edema. Peripheral pulses, full and equal in all extremities, except as noted. No bruits appreciated. ABDOMEN: Soft, nondistended. Normal aorta. No bruit. Nontender. No masses. Liver, nontender, no hepatomegaly. Spleen, nontender, no splenomegaly. MUSCULOSKELETAL: No joint tenderness. No joint swelling. No erythema. NEUROLOGICAL: Normal gait, normal strength, normal tone. SKIN: Warm and dry. OVERALL IMPRESSION: Chest pain compatible with angina, worsening, unstable fashion. We will proceed with coronary angiography. Further care depends upon findings of the angiography. TRANSINT:[id number] Voice Confirmation ID: [id number] DOCUMENT ID: [id number] HISTORY AND PHYSICAL [id number] MAE WELLS JEFFREY MD at 0851 CC: [id number] DICTATION DATE: 08/31/18 1509 COOKIE PADDER: 08/31/18 1641 REG [facility] [address] [id number]
--- NOTE | 2018-09-01 11:29 | NUR ---
IV AND TELEMETRY DCD. DC PLANS GIVEN. UNDERSTANDING VOICED. ESCORTED TO CAR BY W/C.
== END 2018-09-01 11:31 | disposition home or self-care (01) ==
LOC: D.CATH 13:13 → D.ER 13:13 → EDSTATUS 15:19 → D.M2 16:43 → D.CATH 09-01 11:31
PROVIDERS: Family Medicine; ATTEND Internal Medicine Interventional Cardiology
DX: I25.110 Atherosclerotic heart disease of native coronary artery with unstable angina pectoris (principal); Z95.1 Presence of aortocoronary bypass graft; T82.855A Stenosis of coronary artery stent, initial encounter; I10 Essential (primary) hypertension; E78.5 Hyperlipidemia, unspecified; I42.9 Cardiomyopathy, unspecified; Z01.812 Encounter for preprocedural laboratory examination
CPT/HCPCS: 93459; C9600

== ENCOUNTER → 2018-11-16 11:26 | Outpatient (CLI) | payer MEDICARE ==
[2018-08-31 17:58] VITALS: BMI 21.2
[~2018-11-16 11:26] MED LIST changes: +PERCOCET 10-321 EAC1 PO
== END | disposition home or self-care (01) ==
LOC: D.RAD 11:26
PROVIDERS: ATTEND Pain Medicine Interventional Pain Medicine
DX: M25.561 Pain in right knee (principal)

== ENCOUNTER 2018-11-22 07:35 | Emergency (ER) | payer MEDICARE ==
[~2018-11-22] VITALS: Ht 179.1 cm; Wt 89.5 kg
[2018-11-22 07:44] VITALS: Ht 179.1 cm; Wt 89.5 kg
[2018-11-22 08:07] LABS: BASOPHILS 0.2 % (0-2); HEMATOCRIT 43.5 % (36.0-48.0); HEMOGLOBIN 15.2 g/dL (12-16); IMMATURE GRANULOCYTES 0.7 % (0-5); LYMPHOCYTES 27.3 % (15-50); MCH 29.6 pg (26.0-34.0); MCHC 34.9 g/dL (31.0-37.0); MCV 84.6 fL (80.0-100.0); MEAN PLATELET VOLUME 10.8 fL (7.4-10.4); MONOCYTES 8.7 % (2-11); NEUTROPHILS 62.1 % (40-80); PLATELET COUNT 189 10x3/uL (130-400); RBC 5.14 10x6/uL (4.00-5.40); RDW 14.3 % (11.5-14.5); WBC 10.3 10x3/uL (4.8-10.8)
[2018-11-22 08:20] LABS: ALBUMIN 3.2 g/dL (3.4-5.0); ALKALINE PHOSPHATASE 76 U/L (46-116); ALT (SGPT) 25 U/L (10-68); BILIRUBIN - TOTAL 0.67 mg/dL (0.2-1.3); CALC OSMOLALITY 285 mosm/kg (275-300); CALCIUM 8.9 mg/dL (8.5-10.1); CARBON DIOXIDE 24.4 mmol/L (21.0-32.0); CHLORIDE - SERUM 109 mmol/L (98-107); CREATININE - SERUM 0.7 mg/dL (0.6-1.3); POTASSIUM - SERUM 3.6 mmol/L (3.5-5.1); PROTEIN - SERUM 7.1 g/dL (6.4-8.2); SODIUM 144 mmol/L (136-145); UREA NITROGEN 11 mg/dL (7-18); eGFR NON AFRICAN AMERICAN > 90 mL/min (90-120)
[2018-11-22 08:22] LABS: GLUCOSE 106 mg/dL (74-106)
[2018-11-22 08:25] LABS: INR 1.01 (0.85-1.17); PROTIME 12.8 SECONDS (11.6-15.0)
[2018-11-22 08:26] LABS: APTT 29.6 SECONDS (22.8-39.4)
[2018-11-22 08:29] LABS: CKMB 2.7 U/L (0.0-3.6); CREATINE KINASE 147 UL (21-215); MAGNESIUM - SERUM 1.8 mg/dL (1.8-2.4)
[2018-11-22 08:31] LABS: TROPONIN-I < 0.017 ng/mL (0.000-0.060)
[2018-11-22] MEDS ORDERED: ZESTRIL10 MG PO (08:40)
[2018-11-22 08:55] LABS: D-DIMER-QUANTITATIVE 2.3 ug/mLFEU (0.20-0.54)
--- NOTE | 2018-11-22 08:56 | NUR ---
The patient scores low on the suicidal assessment. She did lose her daughter three months ago, but she wants to live because she has a family that she cares. She does not require a 1:1 observation.
[2018-11-22 12:56] VITALS: BP 160/91
== END 2018-11-22 12:55 | disposition home or self-care (01) ==
LOC: D.ER 07:35
PROVIDERS: Family Medicine
DX: R07.9 Chest pain, unspecified (principal); R06.02 Shortness of breath

== ENCOUNTER → 2019-01-28 13:29 | Outpatient (CLI) | payer MEDICARE ==
[2018-11-22 07:44] VITALS: BMI 27.9
[~2019-01-28 13:29] MED LIST changes: +ZESTRIL10 MG PO
[2019-01-28 14:03] LABS: BASOPHILS 0.2 % (0-2); EOSINOPHILS 1.1 % (0-7); HEMATOCRIT 42.2 % (36.0-48.0); HEMOGLOBIN 14.9 g/dL (12-16); IMMATURE GRANULOCYTES 0.7 % (0-5); LYMPHOCYTES 26.8 % (15-50); MCH 29.7 pg (26.0-34.0); MCHC 35.3 g/dL (31.0-37.0); MCV 84.2 fL (80.0-100.0); MEAN PLATELET VOLUME 11.1 fL (7.4-10.4); MONOCYTES 7.2 % (2-11); PLATELET COUNT 224 10x3/uL (130-400); RBC 5.01 10x6/uL (4.00-5.40); RDW 14.9 % (11.5-14.5); WBC 11.6 10x3/uL (4.8-10.8)
[2019-01-28 14:51] LABS: ALBUMIN 3.4 g/dL (3.4-5.0); ANION GAP 13.7 mmol/L (8-16); BILIRUBIN - TOTAL 0.78 mg/dL (0.2-1.3); CALCIUM 8.9 mg/dL (8.5-10.1); CARBON DIOXIDE 25.8 mmol/L (21.0-32.0); CHOL - HDL RATIO 3.7 ratio (2.3-4.1); LDL-HDL RATIO 2.2 ratio (1.5-3.5); POTASSIUM - SERUM 3.5 mmol/L (3.5-5.1); PROTEIN - SERUM 7.5 g/dL (6.4-8.2); T4 THYROXIN - FREE 1.06 ng/dL (0.76-1.46); THYROID STIMULATING HORMONE 2.84 uIU/mL (0.36-3.74)
== END | disposition home or self-care (01) ==
LOC: D.LAB 13:29
PROVIDERS: ATTEND Family Medicine
DX: I10 Essential (primary) hypertension (principal); I25.718 Atherosclerosis of autologous vein coronary artery bypass graft(s) with other forms of angina pectoris; E11.65 Type 2 diabetes mellitus with hyperglycemia; E03.9 Hypothyroidism, unspecified

== ENCOUNTER 2019-02-25 21:46 | Observation (INO) | payer MEDICARE ==
[~2019-02-25] VITALS: Ht 179.1 cm; Wt 79.5 kg
--- NOTE | ~2019-02-25 | HEMODYNAMI ---
PATIENT:MAE CHAHAL MEDICAL RECORD: [id number] : 58 [facility] ADMISSION DATE: 02/25/19 Generatedon:02/26/20199:46 Patient name: MAE CHAHAL Patient #: [id number] SSN: : 1960 Date of study: 02/26/2019 Page: Of Hemodynamic Procedure Report Patient Data Patient Demographics Procedure consent was obtained First Name: MAE Gender: Female Last Name: FELA : 1960 Patient #: [id number] Age: 58 year(s) Race: Black Additional ID: [id number] Contact details Address: [address] [place] [address] State: [place] City: [facility] Zip code: [address] Past Medical History Allergies Allergen Reaction Date Comments Reported Other 07/23/2015 CODIENE,STATINS,WELLBUTRIN allergy Admission Admission Data Admission Date: 02/25/2019 Admission Time: 23:25 Admit Source: Emergency department Room #: D.9 Height (in.): 70.5 BSA: 1.99 (m2) Height (cm.): 179.07 BMI: 24.95 (kg/m2) Weight (lbs.): 176.37 Weight (kg.): 80 Lab Results Lab Result Date: 02/26/2019 Lab Result Time: 0:00 Biochemistry Name Units Result Min Max BUN mg/dl 14 --(--*-)-- 7 18 CK-MB ng/ml 4.8 --(----)-* 0 3.6 Creatinine mg/dl 1 --(--*-)-- 0.6 1.3 eGFR ml/min 73.88948 *-(----)-- 90 120 AM Troponin l ng/ml 0.122 --(----)-* 0 0.06 CBC Name Units Result Min Max Hemoglobin g/dl 14.3 --(*---)-- 13.5 17.5 Procedure Procedure Types Cath Procedure Diagnostic Procedure [facility] w/Coronaries w/Grafts Sedation Charges Moderate Sedation up to 30 minutes PCI Procedure Coronary Stent Coronary Stent Initial Procedure Description Procedure Date Procedure Date: 02/26/2019 Procedure Start Time: 9:21 Procedure End Time: 9:44 Procedure Staff Name Function Baudilio Velasquez MD Performing Physician Chico Hernandez RT Monitor Hebert Lilly RN Nurse Gisselle Kearns RT Scrub Procedure Data Cath Procedure Fluoroscopy Diagnostic fluoroscopy Total fluoroscopy Time: 7.9 time: 7.9 min min Diagnostic fluoroscopy Total fluoroscopy dose: dose: 1092 mGy 1092 mGy Contrast Material Contrast Material Type Amount (ml) Isovue 300 169 Entry Location Entry Primary Successful Side Size Upsize Upsize Entry Closure Succes sful Closure Location (Fr) 1 (Fr) 2 (Fr) Remarks Device Remarks Femoral Right 5 Fr 6 Fr Exoseal artery Short Estimated blood loss: 10 ml Diagnostic catheters Device Type Used For End Catheter Placement MULTIPACK Pigtail 5 Fr Procedure catheter MULTIPACK JL 4.0 5Fr Procedure catheter MULTIPACK 3DRC 5Fr Procedure catheter Procedure Complications No complications Procedure Medications Medication Administration Route Dosage 0.9% NaCl I.V. 100 ml/hr Oxygen etCO2 Nasal cannula 2 l/min Heparin Flush Bag added to field 2 bags (1000units/500ml NS) Lidocaine 2% added to field 20 Versed I.V. 1 mg Fentanyl I.V. 50 mcg Heparin Bolus I.V. 4000 units Fentanyl I.V. 50 mcg Hemodynamics Rest BSA: 1.99 (m2) O2 Consumption: Estimated: 180.59 (ml/min) O2 Consumption indexed : Estimated:90.75 (ml/min/m) Heart Rate: 59 (bpm) Snapshots Pre Cath Intra NCS Post Cath Vital Signs Time Heart Resp SPO2 etCO2 NIBP (mmHg) Rhythm Pain Sedation Rate (ipm) (%) (mmHg) Status Level (bpm) 9:00:43 58 16 94 27.7 133/94(106) NSR 0 (11) 10(A) , No pain 9:04:51 57 27 98 28.5 132/93(109) NSR 0 (11) 10(A) , No pain 9:09:02 57 11 98 9 107/77(94) NSR 0 (11) 10(A) , No pain 9:13:04 56 10 95 2.2 110/80(96) NSR 0 (11) 10(A) , No pain 9:17:08 54 10 98 0.7 108/78(89) NSR 0 (11) 10(A) , No pain 9:21:11 57 10 98 0.7 107/76(86) NSR 0 (11) 10(A) , No pain 9:25:13 58 21 95 0 111/80(91) NSR 0 (11) 10(A) , No pain 9:29:15 58 25 95 12 109/82(93) NSR 0 (11) 10(A) , No pain 9:33:19 58 22 95 18.7 112/77(95) NSR 0 (11) 10(A) , No pain 9:37:22 63 18 95 30.7 122/80(92) NSR 0 (11) 10(A) , No pain 9:41:28 60 21 96 0 124/86(102) NSR 0 (11) 10(A) , No pain Medications Time Medication Route Dose Verified Delivered Reason Notes Effectiveness by by 9:00:35 0.9% NaCl I.V. 100 Hebert Hebert Per physician ml/hr Vijaya Lilly RN RN 9:00:44 Oxygen etCO2 2 Hebert Hebert for low 02 sats Nasal l/min Vijaya Lilly cannula RN RN 9:00:56 Heparin Flush added 2 Hebert Hebert used for Bag to bags Vijaya Lilly procedure (1000units/500ml field RN RN NS) 9:01:07 Lidocaine 2% added 20ml Hebert Hebert for local to vial Vijaya Lilly anesthetic field RN RN 9:21:43 Versed I.V. 1 mg Hebert Hebert for sedation Vijaya Lilly RN RN 9:21:52 Fentanyl I.V. 50 Hebetr Hebert for sedation mcg Vijaya Lilly RN RN 9:30:48 Heparin Bolus I.V. 4000 Hebert Hebert for units Vijaya Lilly anticoagulation RN RN 9:39:57 Fentanyl I.V. 50 Hebert Hebert for sedation mcg Vijaya Lilly RN unix architect Log Time Note 8:29:54 Procedure Status Urgent Heart Cath (IP). 8:30:10 Chico LANGSTON(R) sent for patient. Start room use. 8:31:31 ACC Patient presents with Non-STEMI CCS Anginal Class 4--Inability to carry out any physical activity w/o angina. Angina may occur at rest. 8:31:59 ACCPatient has been prescribed/administered the following anti-anginal medication within the last 2 weeks: Beta Starla, Calcium Channel Blockers, FENG-Inhibitor 8:33:12 Time tracking: Regular hours (M-F 7:00 - 5:00) 8:33:17 Plan of Care:Hemodynamics will remain stable., Cardiac rhythm will remain stable., Comfort level will be maintained., Respiratory function will remain adequate., Patient/ family verbilizes understanding of procedure., Procedure tolerated without complication., Recovers from procedure without complications.. 8:35:13 Admit Source: Emergency department 8:35:34 Patient Height : 70.5 inches 8:35:39 Patient Weight : 176.37 lbs 8:36:39 Lab Result : BUN 14 mg/dl 8:36:39 Lab Result : Hemoglobin 14.3 g/dl 8:36:39 Lab Result : eGFR AM 73.08741 ml/min 8:36:39 Lab Result : Troponin l 0.122 ng/ml 8:36:39 Lab Result : Creatinine 1 mg/dl 8:36:39 Lab Result : CK-MB 4.8 ng/ml 8:50:02 Patient received from Med II to [facility] 2 Alert and oriented. Tansferred to table in Supine position. 8:50:04 Warm blankets applied, and angel hugger turned on for patient comfort. 8:50:04 Correct patient and procedure confirmed by team. 8:50:12 Signed procedure consent form obtained from patient. 8:58:59 ECG and BP/O2 sat monitors applied to patient. 8:59:32 Vital chart was started 9:00:35 0.9% NaCl 100 ml/hr I.V. was administered by Hebert Lilly RN; Per physician; 9:00:44 Oxygen 2 l/min etCO2 Nasal cannula was administered by Hebert Lilly RN; for low 02 sats; 9:00:56 Heparin Flush Bag (1000units/500ml NS) 2 bags added to field was administered by Hebert Lilly RN; used for procedure; 9:01:07 Lidocaine 2% 20ml vial added to field was administered by Hebert Lilly RN; for local anesthetic; 9:06:10 Baseline sample Acquired. 9:06:24 Rhythm: sinus bradycardia 9:06:26 Full Disclosure recording started 9:06:30 H&P Date Dictated: 02/26/2019 Within 30 days and on chart.. 9:06:31 Pre-procedure instructions explained to patient. 9:06:32 Pre-op teaching completed and patient verbalized understanding. 9:06:36 Family in patients room. 9:06:37 Patient NPO since Midnight. 9:06:39 Is the patient allergic to Iodine/contrast media? No. 9:06:46 Is patient on blood thinner?Yes 9:06:50 ACC The patient was administered the following blood thiners within the last 24 hours: ACCPlavix 9:07:08 Patient diabetic? Yes. 9:07:09 If diabetic: On Metformin? Yes 9:07:11 If on Metformin: Last Dose? 02/26/2019 9:08:10 Patient not . Patient is over age 55. 9:08:12 Previous problem with sedation/anesthesia? No ? 9:08:13 Snore? Yes 9:08:14 Sleep apnea? No 9:08:15 Deviated septum? No 9:08:16 Opens mouth fully? Yes 9:08:17 Sticks out tongue? Yes 9:08:19 Airway obstruction? No ? 9:08:20 Dentures? No ? 9:08:23 Pre procedure: right dorsailis pedis pulse 1+ Palpable, but thready & weak; easily obliterated 9:08:28 Patient pain scale 0/10 ?. 9:08:31 IV patent on arrival in left forearm with 0.9% NaCl at KVO. 9:08:33 Lab results completed and on chart. 9:08:36 Right groin area was prepped with chlora-prep and draped in sterile fashion 9:08:37 Alarms reviewed by R. N. 9:08:37 Sharps counted by scrub and verified by R.N. 9:12:37 Use device set Femoral Dx 9:12:39 Tegaderm 4 x 4 (1576W) opened to sterile field. 9:12:40 ACIST Manifold (51077) opened to sterile field. 9:12:40 ACIST Hand Control (07251) opened to sterile field. 9:12:42 ACIST Syringe (41135) opened to sterile field. 9:12:42 Bag Decanter (2002S) opened to sterile field. 9:12:43 Medline Cath Pack ([id number]) opened to sterile field. 9:12:44 DIAGNOSTIC Multipack 5Fr catheter set (SY1589) opened to sterile field. 9:12:45 SHEATH 5FR Downey (SYG978) opened to sterile field. 9:12:46 EMERALD Guide Wire (816-300) opened to sterile field. 9:20:32 --------ALL STOP TIME OUT------ 9:20:32 Final Timeout: patient, procedure, and site verified with staff and physician. All members of the team are in agreement. 9:20:34 Right groin site verified by team. 9:20:37 Fire Safety Assessment: A--An alcohol-based skin anteseptic being used preoperatively., C--Open oxygen or nitrous oxide is being used., D--An ESU, laser, or fiber-optic light is being used. 9:20:40 Physical assessment completed. ASA score P 2 - A patient with mild systemic disease as per aBudilio Velasquez MD. 9:20:44 2) 60-89 Mildly reduced kidney function, and other findings (as for stage 1) point to kidney disease. 9:20:47 Maximum allowable contrast dose (3.7 X eGFR X 0.75)203 ml. 9:20:51 Sedation plan: IV Moderate Sedation Medication:Versed, Fentanyl 9:21:40 Procedure started. 9:21:42 Local anesthetic to right femoral artery with Lidocaine 2% by Baudilio Velasquez MD.INITIAL ACCESS ONLY 9:21:43 Versed 1 mg I.V. was administered by Hebert Lilly RN; for sedation; 9:21:52 Fentanyl 50 mcg I.V. was administered by Hebert Lilly RN; for sedation; 9:23:05 A 5 Fr sheath was inserted into the Right Femoral artery 9:23:50 A MULTIPACK Pigtail 5 Fr catheter was advanced over the wire and used for Procedure. 9:23:54 LV angiography performed. 9:23:57 LV gram done using DANIELSON 9:24:02 EF : 55 % 9:24:07 Injector settings: Ml/sec: 10, Volume: 20, 9:25:12 Catheter removed. 9:25:17 A MULTIPACK JL 4.0 5Fr catheter was advanced over the wire and used for Procedure. 9:25:45 LCA angiography performed. 9:25:58 Catheter removed. 9:26:05 A MULTIPACK 3DRC 5Fr catheter was advanced over the wire and used for Procedure. 9:26:12 Use device set [facility] PCI 9:26:29 SHEATH 6FR Downey (BVC909) opened to sterile field. 9:26:35 CHOICE PT Extra Support 182cm wire ([id number]) opened to sterile field. 9:26:36 INFLATOR Merit BasixCompak (PR2654) opened to sterile field. 9:27:52 MCKNIGHT to LAD angiography performed. 9:28:07 ACCDominant side:Co-Dominant 9:28:13 RCA angiography performed. 9:28:14 Catheter removed. 9:28:34 ACC Pre-intervention DAWSON Flow is 3. 9:28:58 Pre PCI Site: [place] dCirc has 85% stenosis. 9:29:07 Sheath upsized to a 6 Fr Short. 9:29:18 GUIDE 6FR XB 4.0 catheter ([id number]) opened to sterile field. 9:29:23 6 Fr XB 4 guide catheter was inserted over the wire 9:30:48 Heparin Bolus 4000 units I.V. was administered by Hebert Lilly RN; for anticoagulation; 9:30:50 CPTXS wire advanced. 9:32:42 Wire removed. 9:32:44 Guide catheter removed. 9:32:53 GUIDE 6FR XB 3.5 catheter ([id number]) opened to sterile field. 9:33:06 6 Fr XB 3.5 guide catheter was inserted over the wire 9:33:22 CPTXS wire advanced. 9:34:08 Wire advanced across lesion. 9:36:45 Place stent Inflation Number: 1 A BROOK RX 2.75 x 18 stent ([id number]) was prepped and advanced across the Dist CX 85. The stent was deployed at 15 KALYANI for 0:10 (min:sec) 0. 9:37:02 Inflation number: 2 The stent balloon was then re-inflated across the Dist CX 0 to 17 KALYANI for 0:10 (min:sec) . 9:37:35 Inflation number: 3 The stent balloon was then re-inflated across the Dist CX 85 to 17 KALYANI for 0:10 (min:sec) . 9:38:00 Stent catheter was removed intact over wire. 9:38:01 Wire removed. 9:38:01 Guide catheter removed. 9:38:04 ACC Post-intervention DAWSON Flow is 3. 9:38:13 Post PCI Site: [place] dCirc has 0% stenosis. 9:38:16 EXOSEAL 6Fr (EX600) opened to sterile field. 9:38:36 Sheath removed intact; hemostasis achieved with Exoseal to the Right Femoral artery. 9:38:38 Procedure ended.(Physican Out) 9:39:19 Fluoroscopy time 07.90 minutes. 9:39:25 Fluoroscopy dose: 1092 mGy 9:39:25 Flurop Dose total: 1092 9:39:32 Dose Area Product 54434 mGy/cm. 9:39:36 Contrast amount:Isovue 300 169ml. 9:39:39 Maximum allowable dose exceeded? No. 9:39:42 Sharps counted by scrub and verified by R.N. 9:39:47 Insertion/operative site no bleeding no hematoma. 9:39:50 Post-op/insertion site Right Femoral artery dressed using a 4 x 4 and Tegaderm. 9:39:51 Post Procedure Pulses reassessed and unchanged 9:39:53 Post-procedure physical assessment completed. ASA score P 2 - A patient with mild systemic disease as per Baudilio Velasquez MD. 9:39:56 Post procedure rhythm: unchanged. 9:39:57 Fentanyl 50 mcg I.V. was administered by Hebert Lilly RN; for sedation; 9:39:58 Estimated blood loss: 10 ml 9:40:01 Post procedure instruction explained to patient.Patient verbalizes understanding. 9:40:02 Patient needs reinforcement of post procedure teaching. 9:40:54 Procedure type changed to Cath procedure, Diagnostic procedure, LHC, LHC w/Coronaries w/Grafts, Sedation Charges, Moderate Sedation up to 30 minutes, PCI procedure, Coronary Stent, Coronary Stent Initial 9:41:44 Procedure and supply charges have been captured, reviewed, submitted and are correct. 9:41:46 Procedure Complication : No complications 9:42:44 Vital chart was stopped 9:42:45 See physician's report for complete and final results. 9:43:39 Report given to PCU. 9:43:58 Patient transfered to PCU with Bed. 9:44:01 Procedure ended. 9:44:01 Full Disclosure recording stopped 9:44:10 End room use (Document Last) 9:44:59 Chico Hernandez RT(R) was relieved by Chico Hernandez RT(R) as monitoring person 9:45:30 ACT drawn and resulted at 284 seconds. (normal therapeutic range 180-240 seconds). Intervention Summary Intervention Notes Time ActionType Lesion and Equipment Used Action# Pressure Duration Attributes 9:36:45 Place stent Dist CX BROOK RX 2.75 x 1 15 00:10 18 stent ([id number]) 9:37:02 Reinflate Dist CX BROOK RX 2.75 x 2 17 00:10 stent 18 stent balloon ([id number]) 9:37:35 Reinflate Dist CX BROOK RX 2.75 x 3 17 00:10 stent 18 stent balloon ([id number]) Device Usage Item Name Manufacture Quantity Catalog Number Hospital Part Current M inimal Lot# / Charge Number Stock Stock Serial# Code Tegaderm 4 x 4 3M 1 [id number] 501032 326608 5 (1626W) ACIST Manifold Acist 1 49290 924871 571648 285523 5 (23990) Medical Systems Inc ACIST Hand Acist 1 47197 118563 775116 205854 5 Control Medical (83217) Systems Inc ACIST Syringe Acist 1 79394 791375 967162 462245 2 0 (73572) Medical Systems Inc Bag Decanter Microtek 1 2001S 259337 89711 578176 5 (2001S) Medical Inc. Medline Cath Medline 1 [id number] 798770 33288 498167 5 Pack ([id number]) DIAGNOSTIC Cardinal 1 KQ2908 361082 01353 219707 3 0 Multipack 5Fr Health catheter set (SS2489) SHEATH 5FR Terumo 1 YFD634 410581 045549 872349 5 Downey (IBN915) EMERALD Guide Cardinal 1 502-455 788159 322793 359556 5 Wire (502455) Health MULTIPACK Cardinal 1 517973 5 Pigtail 5 Fr Health catheter MULTIPACK JL Cardinal 1 519126 5 4.0 5Fr Health catheter MULTIPACK 3DRC Cardinal 1 703081 5 5Fr catheter Health SHEATH 6FR Terumo 1 JFK178 031220 311914 874636 4 0 Downey (NLK573) CHOICE PT Hastings 1 [id number] 068013 420887 885136 5 Extra Support Scientific 182cm wire ([id number]) INFLATOR Merit Merit 1 PA1498 254550 992581 707063 1 5 Propeller Health (ZH1502) GUIDE 6FR XB Cardinal 1 [id number] 157523 376976 797367 2 4.0 catheter Health (49870124) GUIDE 6FR XB Cardinal 1 [id number] 267433 493054 419629 2 3.5 catheter Health (42441824) BROOK RX 2.75 x Medtronic 1 [id number] 086897 9885382 285637 5 [id number] 18 stent ([id number]) EXOSEAL 6Fr Cardinal 1 EX600 835898 121689 477388 1 0 (EX600) Health Signature Audit Marion Stage Time Signature Unsigned Intra-Procedure 02/26/2019 Chico Hernandez 9:44:41 AM RT(R) Intra-Procedure 02/26/2019 Hebert 9:45:58 AM Vijaya RN Intra-Procedure 02/26/2019 Baudilio Velasquez 9:46:24 AM [facility] [address] [place] [address]
[2019-02-25 22:22] LABS: BASOPHILS 0.2 % (0-2); EOSINOPHILS 1.4 % (0-7); HEMATOCRIT 42.9 % (36.0-48.0); IMMATURE GRANULOCYTES 0.9 % (0-5); LYMPHOCYTES 31.5 % (15-50); MCH 29.9 pg (26.0-34.0); MCV 85.6 fL (80.0-100.0); MEAN PLATELET VOLUME 11.1 fL (7.4-10.4); MONOCYTES 9.2 % (2-11); NEUTROPHILS 56.8 % (40-80); PLATELET COUNT 242 10x3/uL (130-400); RBC 5.01 10x6/uL (4.00-5.40); WBC 11.5 10x3/uL (4.8-10.8)
[2019-02-25 22:27] VITALS: BP 146/101
[2019-02-25 22:31] LABS: PROTIME 12.7 SECONDS (11.6-15.0)
[2019-02-25 22:41] LABS: ALBUMIN 3.1 g/dL (3.4-5.0); ALKALINE PHOSPHATASE 88 U/L (46-116); ALT (SGPT) 27 U/L (10-68); BILIRUBIN - TOTAL 0.48 mg/dL (0.2-1.3); CALC OSMOLALITY 283 mosm/kg (275-300); CALCIUM 8.8 mg/dL (8.5-10.1); CARBON DIOXIDE 24.8 mmol/L (21.0-32.0); CHLORIDE - SERUM 108 mmol/L (98-107); CREATININE - SERUM 1.2 mg/dL (0.6-1.3); GLUCOSE 120 mg/dL (74-106); POTASSIUM - SERUM 3.7 mmol/L (3.5-5.1); PROTEIN - SERUM 7.2 g/dL (6.4-8.2); SODIUM 142 mmol/L (136-145); UREA NITROGEN 13 mg/dL (7-18); eGFR NON AFRICAN AMERICAN 49 mL/min (90-120)
[2019-02-25 23:05] LABS: CREATINE KINASE 315 UL (21-215); MAGNESIUM - SERUM 1.7 mg/dL (1.8-2.4)
[2019-02-25 23:16] LABS: TROPONIN-I 0.122 ng/mL (0.000-0.060)
--- NOTE | 2019-02-25 23:19 | NUR ---
ELEVATED LAB. TROP 0.122 MD CHAND INFORMED.
--- NOTE | 2019-02-25 23:55 | NUR ---
PT ASSISTED TO RESTROOM. NO S/S OF ACUTE DISTRESS NOTED. PT PROVIDED SANDWICH BOX AT THIS TIME.
--- NOTE | 2019-02-26 00:56 | NUR ---
RECIEVED TO ROOM 2118 FROM ER VIA W.C. PT A&O. RESPERATIONS EVEN ON RA. VITALS STABLE. HISTORY AND MED REC OBTAINED. PLACED ON TELEMETRY, 59 SB, PER MT. PT CRYING AND VERY UPSET, PT STATED THAT TWO OF HER CHILDREN HAVE WITH IN THE LAST 7 MONTHS WITH ONE BEING EARLIER TONIGHT. FAMILY ASKING IF PT CAN HAVE SOMETHING TO HELP HER REST, INFORMED THEM THAT I WILL CALL THE PCP.
[2019-02-26 02:46] VITALS: BP 128/95; BMI 24.8
[2019-02-26 04:00] VITALS: BP 112/79
[2019-02-26 04:45] LABS: BASOPHILS 0.1 % (0-2); EOSINOPHILS 1.5 % (0-7); HEMATOCRIT 41.9 % (36.0-48.0); HEMOGLOBIN 14.3 g/dL (12-16); IMMATURE GRANULOCYTES 0.7 % (0-5); LYMPHOCYTES 30.3 % (15-50); MCH 29.1 pg (26.0-34.0); MCHC 34.1 g/dL (31.0-37.0); MCV 85.3 fL (80.0-100.0); MEAN PLATELET VOLUME 11.4 fL (7.4-10.4); MONOCYTES 6.8 % (2-11); NEUTROPHILS 60.6 % (40-80); PLATELET COUNT 237 10x3/uL (130-400); RBC 4.91 10x6/uL (4.00-5.40); RDW 15.1 % (11.5-14.5); WBC 9.6 10x3/uL (4.8-10.8)
--- NOTE | 2019-02-26 04:54 | NUR ---
I have reviewed this patient and I concur with the Shift Assessment completed by the Licensed Practical Nurse today this shift.
[2019-02-26 05:29] LABS: CALC OSMOLALITY 284 mosm/kg (275-300); CALCIUM 8.7 mg/dL (8.5-10.1); CARBON DIOXIDE 26.1 mmol/L (21.0-32.0); CHLORIDE - SERUM 107 mmol/L (98-107); CKMB 4.8 U/L (0.0-3.6); CREATINE KINASE 250 UL (21-215); GLUCOSE 121 mg/dL (74-106); MAGNESIUM - SERUM 1.9 mg/dL (1.8-2.4); PHOSPHOROUS 4.3 mg/dL (2.5-4.9); POTASSIUM - SERUM 3.6 mmol/L (3.5-5.1); SODIUM 142 mmol/L (136-145); UREA NITROGEN 14 mg/dL (7-18); eGFR NON AFRICAN AMERICAN 60 mL/min (90-120)
[2019-02-26 05:30] LABS: TROPONIN-I 0.122 ng/mL (0.000-0.060)
[2019-02-26 08:05] VITALS: Ht 179.1 cm; Wt 79.5 kg
[2019-02-26 08:29] VITALS: BP 119/83
--- NOTE | 2019-02-26 08:54 | NUR ---
pre-ops given. to microbiological laboratory technician by bed.
--- NOTE | 2019-02-26 10:15 | NUR ---
BACK FROM BLOCKMASON. VS WNL. RIGHT GROIN STABLE WITHOUT BLEEDING OR HEMATOMA NOTED. WILL MONITOR.
[2019-02-26 11:24] VITALS: BP 117/83
[2019-02-26 11:40] LABS: CKMB 5.1 U/L (0.0-3.6); CREATINE KINASE 312 UL (21-215)
[2019-02-26 12:16] LABS: TROPONIN-I 0.099 ng/mL (0.000-0.060)
--- NOTE | 2019-02-26 13:38 | OP ---
PATIENT NAME: MAE CHAHAL MEDICAL RECORD: [id number] :58 LOCATION:D.M2 D.2119 ADMISSION DATE:02/25/19 SURGEON: ROMERO OBRIEN MD DATE OF OPERATION: 02/26/2019 PROCEDURES: 1. PTCA stent left circumflex. 2. Left heart catheterization. 3. Selective coronary angiography. 4. Left ventriculogram. 5. MCKNIGHT angiography. INDICATION: Non-Q-wave myocardial infarction. PROCEDURE IN DETAIL: After informed consent was obtained and after a detailed description of risks, benefits as well as alternative therapies, the patient elected to proceed with angiogram and angioplasty. The right femoral area was prepped and draped in normal sterile fashion. Right femoral artery was cannulated via modified Seldinger technique with placement of 6-Luxembourgish sheath. All catheters exchanged through this sheath. FINDINGS: The left atrium was performed in a standard 30-degree DANIELSON view, reveals good cardiac wall motion, ejection fraction is 60%. SELECTIVE CORONARY ANGIOGRAPHY: 1. Left main showed no significant angiographic disease. 2. Left anterior descending has a 95% stenosis proximally. 3. MCKNIGHT to the LAD is widely patent. Distal LAD is widely patent. 4. Left circumflex has previously placed stents, these are patent; however, there is 90% stenosis after the previously placed stents. 5. The right coronary has mild irregularities, but no flow-limiting stenosis. PTCA STENT OF THE LEFT CIRCUMFLEX: The stent used was a 2.75 x 18 mm Rolo taken to 17 atmospheres. Result was 0% residual stenosis. OVERALL IMPRESSION: Successful PTCA stent of the left circumflex going from 90% initial stenosis to 0% residual. TRANSINT:[id number] Voice Confirmation ID: [id number] DOCUMENT ID: [id number] ROMERO OBRIEN MD at 1338 CC: [id number] DICTATION DATE: 02/26/19 0948 LINSEED OIL TEMPERER: 02/26/19 1140 ADM [id number] [place] [address]
--- NOTE | 2019-02-26 13:38 | CN ---
PATIENT NAME:MAE WELLS MEDICAL RECORD: [id number] : 58 LOCATION:D. D.2119 ADMIT DATE: 02/25/19 ACCOUNT: [id number] CONSULTING PHYSICIAN: ROMERO OBRIEN MD REFERRING PHYSICIAN: ROSAURA PAK MD DATE OF CONSULTATION: 02/25/2019 DIAGNOSES: 1. Non-Q-wave myocardial infarction. 2. Coronary artery disease. 3. Status post coronary artery bypass graft surgery. 4. Status post previous percutaneous transluminal coronary angioplasty stent. 5. Hypertension. 6. Hyperlipidemia. 7. Noninsulin-dependent diabetes. HISTORY OF PRESENT ILLNESS: Mrs. Wells presents with severe chest discomfort. Troponin is positive for non-Q-wave myocardial infarction. EKG is with nonspecific ST-T abnormalities. She continues to have episodes of chest pain this morning. Last cardiac intervention was in August with PTCA stent of left main leading into a non-grafted circumflex. She had patent MCKNIGHT to the LAD at that time and a patent RCA. PHYSICAL EXAMINATION: CONSTITUTIONAL/GENERAL APPEARANCE: Well nourished, well developed, appears stated age. EYES: Lids and conjunctivae noninjected. No discharge. No pallor. ENT: Lips within normal limit. No cyanosis. No pallor. NECK: Carotid arteries, bilateral normal upstroke. No bruits. No thrills. No jugular venous pressure or distention. CERVICAL LYMPH NODES: Nontender. Nonenlarged. THYROID: Not enlarged. No nodules. CARDIOVASCULAR: Precordial exam, nondisplaced. No heaves or pericardial thrills. Rate and rhythm, regular. Heart sounds, normal S1, normal S2. No S3, no gallop, no rub. Systolic murmur, not heard. Diastolic murmur, not heard. RESPIRATORY: Respiratory effort, unlabored. Normal curvature. No thoracic deformity. No chest wall tenderness. Percussion, resonant. Auscultation, clear. No wheezes, no rales, no rhonchi. ABDOMEN: Soft, nondistended, nontender. No abdominal pain, no vomiting and normal appetite. MUSCULOSKELETAL: No joint tenderness, normal gait, normal tone. SKIN: Warm and dry. OVERALL IMPRESSION: Non-Q-wave myocardial infarction with continued chest discomfort. She is currently with systolic blood pressure in the 110, heart rate in the 60s on maximal medical therapy of long-acting nitrate and calcium channel yanely and beta yanely and still having symptomatology. We will proceed with coronary angiography. TRANSINT:[id number] Voice Confirmation ID: [id number] DOCUMENT ID: [id number] CONSULT REPORT [id number] MAE WELLS JEFFREY MD at 1338 CC: [id number] DICTATION DATE: 02/26/19805 BANANA LOADER: 02/26/19 1042 ADM IN [place] [place] [address] [place] [address]
--- NOTE | 2019-02-26 14:10 | NUR ---
BED REST UP. GROIN STABLE.
--- NOTE | 2019-02-26 14:56 | MORECARE ---
CASE MANAGEMENT DISCHARGE SUMMARY PATIENT: MAE CHAHAL UNIT: [id number] ADM DATE: 02/25/19 AGE: 58 : 58 SEX: F ROOM/BED: D.4705 AUTHOR: LÓPEZ HOWELL PHYSICIAN: REFERRING PHYSICIAN: ROSAURA PAK MD DATE OF SERVICE: 02/26/19 Discharge Plan Patient Name: MAE CHAHAL Facility: [facility]:[place] : 1960 Planned Disposition: Home Anticipated Discharge Date: 02/26/19 Discharge Date: Expected LOS: 1 Initial Reviewer: [email or web address] Initial Review Date: 02/26/2019 Generated: 02/26/19 3:56 pm DCPIA - Discharge Planning Initial Assessment Updated by [email or web address]: [employer] on 02/26/19 2:53 pm * Is the patient Alert and Oriented? Yes * How many steps to enter\exit or inside your home? NONE * PCP NONE [facility] REFERR[facility] * Pharmacy [facility] ([place]) * Preadmission Environment Home Alone * ADLs Independent * Equipment Tub Bench * Other Equipment NO MEDICAL EQUIPMENT PROVIDER PREFERENCE * List name and contact numbers for known caregivers / representatives who currently or will assist patient after discharge: PATRICIA ALMANZA DTR, EB HARVEY, SON'S GIRLFRIEND, * Verbal permission to speak to the caregivers and representatives has been obtained from the patient. N/A * Community resources currently utilized None * Please name any agencies selected above. NONE * Additional services required to return to the preadmission environment? No * Can the patient safely return to the preadmission environment? Yes * Has this patient been hospitalized within the prior 30 days at any hospital? No Coverage Notice Reviewer: [id number] - [employer] Notice Issued Date-Time: 02/26/2019 13:15 Notice Type: Medicare Outpatient Observation Notice Notice Delivered To: Patient Relationship to Patient: Warhead Maintenance Specialist Name: Delivery Method: HAND - Hand Delivered Emelia Days: Prior Verbal Notification: Recipient Understood Notice: Yes Recipient Signature: Yes Med Rec Note Co-signed by Attending: Coverage Notice Comment: Patient Name: MAE CHAHAL Page 72614 at 1456 All edits/amendments must be made on the electronic document DICTATION DATE: 02/26/191455 DIGITAL MARKETING ASSISTANT: RAEANN 02/26/191455 RPT#: [id number] DC DATE: STATUS: ADM IN [facility] [address] [place] [address] END OF REPORT
--- NOTE | 2019-02-26 14:58 | NUR ---
IV AND TELEMETRY DCD. DC PLANS GIVEN. UNDERATANDING VOICED. ESCORTED TO CAR BY W/C.
--- NOTE | 2019-02-26 15:05 | MORECARE ---
CASE MANAGEMENT DISCHARGE SUMMARY PATIENT: MAE CHAHAL UNIT: [id number] ADM DATE: 02/25/19 AGE: 58 : 58 SEX: F ROOM/BED: D.7528 AUTHOR: DANTE,DOC PHYSICIAN: REFERRING PHYSICIAN: ROSAURA PAK MD DATE OF SERVICE: 02/26/19 Discharge Plan Patient Name: MAE CHAHAL Facility: [facility]:[place] : 1960 Planned Disposition: Home Anticipated Discharge Date: 02/26/19 Discharge Date: 02/26/2019 Expected LOS: 1 Initial Reviewer: [email or web address] Initial Review Date: 02/26/2019 Generated: 02/26/19 4:05 pm Comments DCP- Discharge Planning Updated by [email or web address]: [employer] on 02/26/19 2:[address] Patient Name: MAE CHAHAL Encounter No: [id number] : 1960 Primary Insurance: [facility] [employer] Anticipated DC Date: 02-26-2019 Planned Disposition: Home DCP follow-up note: CM RECEIVED CONSULT FOR PT'S SON WAS KILLED LAST NIGHT AND HER DAUGHTER 6 MONTHS AGO. CM MET WITH PT IN ROOM TO DISCUSS DISCHARGE PLANNING AND NEEDS. PT REPORTS LIVING AT HOME INDEPENDENTLY AND ALONE. PT HAS TUB BENCH AND NO MEDICAL EQUIPMENT PROVIDER PREFERENCE. PT HAS NO OUTSIDE SERVICES ASSISTING IN THE HOME. CM DISCUSSED AVAILABILITY OF HOME HEALTH, REHAB SERVICES AND MEDICAL EQUIPMENT. PT DENIES DISCHARGE NEEDS, REPORTS HER FAMILY OR FRIEND WILL PICK HER UP FOR DISCHARGE HOME. MEDICARE OBSERVIATION NOTICE PROVIDED AND EXPLAINED. CM ASKED ABOUT PT'S EMOTIONAL STATE. PT STATES HE SON WAS MURDERED YESTERDAY AND HER FRIEND IS HELPING TO FIND CREAMATION SERVICES HE DID NOT HAVE INSURANCE. PT REPORTS HAVING GOOD SUPPORT FROM FAMILY AND FRIENDS. CM ASKED ABOUT POSSIBLE NEED OF COUNSELING TO HELP DEAL WITH GRIEF. PT STATES SHE HAS [facility]EN [facility]FORE FOR OUTPATIENT COUNSELING AFTER HER DAUGHTERS AND COULD GO BACK THERE IF NEEDED. CM PROVIED PT WITH WALK IN [facility] AT [facility]. PT THANKED CM AND STATES IF SHE FEELS LIKE SHE NEEDS THE SERVICE, SHE WILL GO. CM PROVIDED PT WITH [facility] INFORMATION PT IS SEEKING NEW PRIMARY CARE PHYSICIAN. PT DENIES DISCHARGE NEEDS, PLANS TO DISCHARGE HOME ALONE AND REPORTS HAVING SUPPORT OF FAMILY AND FRIENDS. CM PROVIDED OUTPATIENT COUNSELING CLINIC INFORMATION. FAMILY TO TRANSPORT HOME AT DISCHARGE. CM TO FOLLOW AND ASSIST IF NEEDED. [employer], CASE MANAGEMENT DCPIA - Discharge Planning Initial Assessment Updated by [id number]: [employer] on 02/26/19 2:53 pm * Is the patient Alert and Oriented? Yes * How many steps to enter\exit or inside your home? NONE * PCP NONE [facility] REF[facility] * Pharmacy [facility] ([place]) * Preadmission Environment Home Alone * ADLs Independent * Equipment Tub Bench * Other Equipment NO MEDICAL EQUIPMENT PROVIDER PREFERENCE * List name and contact numbers for known caregivers / representatives who currently or will assist patient after discharge: PATRICIA ALMANZA, DTR, EB HARVEY, SON'S GIRLFRIEND, * Verbal permission to speak to the caregivers and representatives has been obtained from the patient. N/A * Community resources currently utilized None * Please name any agencies selected above. NONE * Additional services required to return to the preadmission environment? No * Can the patient safely return to the preadmission environment? Yes * Has this patient been hospitalized within the prior 30 days at any hospital? No Coverage Notice Reviewer: [id number] - [employer] Notice Issued Date-Time: 02/26/2019 13:15 Notice Type: Medicare Outpatient Observation Notice Notice Delivered To: Patient Relationship to Patient: Carton Forming Machine Helper Name: Delivery Method: HAND - Hand Delivered Emelia Days: Prior Verbal Notification: Recipient Understood Notice: Yes Recipient Signature: Yes Med Rec Note Co-signed by Attending: Coverage Notice Comment: Last DP export: 02/26/19 1:56 p Patient Name: MAE CHAHAL Page [phone] at 1505 All edits/amendments must be made on the electronic document DICTATION DATE: 02/26/19 150 LEGAL SUPPORT ASSISTANT: RAEANN 02/26/19 1505 RPT#: [id number] DC DATE:02/26/19 STATUS: DIS IN [facility] [address] [place] [address] END OF REPORT
== END 2019-02-26 14:58 | disposition home or self-care (01) ==
LOC: D.ER 21:46 → D.M2 23:25 → OBSVTIME 23:25 → D.M2 02-26 14:58
PROVIDERS: Emergency Medicine; ADMIT Internal Medicine Nephrology; ATTEND Internal Medicine Nephrology
DX: I21.4 Non-ST elevation (NSTEMI) myocardial infarction (principal); I10 Essential (primary) hypertension; E78.5 Hyperlipidemia, unspecified; E11.9 Type 2 diabetes mellitus without complications; I42.9 Cardiomyopathy, unspecified; I25.110 Atherosclerotic heart disease of native coronary artery with unstable angina pectoris
CPT/HCPCS: 93459; C9600

== ENCOUNTER 2019-03-30 09:57 | Observation (INO) | payer MEDICARE ==
[~2019-03-30] VITALS: Ht 179.1 cm; Wt 81.2 kg
[2019-03-30 10:08] VITALS: BP 153/94
[2019-03-30 10:16] LABS: HEMATOCRIT 44.9 % (36.0-48.0); HEMOGLOBIN 14.9 g/dL (12-16); LYMPHOCYTES 24.3 % (15-50); MCH 28.9 pg (26.0-34.0); MCHC 33.2 g/dL (31.0-37.0); MCV 87.2 fL (80.0-100.0); MEAN PLATELET VOLUME 11.2 fL (7.4-10.4); NEUTROPHILS 66.6 % (40-80); PLATELET COUNT 205 10x3/uL (130-400); RBC 5.15 10x6/uL (4.00-5.40); RDW 14.9 % (11.5-14.5); WBC 9.3 10x3/uL (4.8-10.8)
--- NOTE | 2019-03-30 10:17 | NUR ---
CHEST PAIN 7/10 AT THIS TIME. 2ND NITRO GIVEN
[2019-03-30 10:25] LABS: CALC OSMOLALITY 285 mosm/kg (275-300); CALCIUM 8.7 mg/dL (8.5-10.1); CARBON DIOXIDE 24.8 mmol/L (21.0-32.0); CHLORIDE - SERUM 108 mmol/L (98-107); POTASSIUM - SERUM 3.6 mmol/L (3.5-5.1); SODIUM 141 mmol/L (136-145); UREA NITROGEN 14 mg/dL (7-18); eGFR NON AFRICAN AMERICAN 60 mL/min (90-120)
[2019-03-30 10:26] LABS: GLUCOSE 169 mg/dL (74-106)
[2019-03-30 10:28] LABS: APTT 28.7 SECONDS (22.8-39.4); INR 1.02 (0.85-1.17); PROTIME 12.9 SECONDS (11.6-15.0)
[2019-03-30 10:43] LABS: ALBUMIN 3.1 g/dL (3.4-5.0); ALKALINE PHOSPHATASE 86 U/L (46-116); ALT (SGPT) 21 U/L (10-68); BILIRUBIN - TOTAL 0.53 mg/dL (0.2-1.3); CREATINE KINASE 315 UL (21-215); LIPASE 259 U/L (73-393); MAGNESIUM - SERUM 1.8 mg/dL (1.8-2.4); PRO BNP 138 pg/mL (0-125); PROTEIN - SERUM 7.4 g/dL (6.4-8.2); TROPONIN-I 0.043 ng/mL (0.000-0.060)
--- NOTE | 2019-03-30 12:28 | NUR ---
TRANSFER FROM ER BY W/C. GULSHANINTED TO ROOM. CALL LIGHT IN REACH. WILL CONT. PLAN OF CARE.
[2019-03-30] MEDS ORDERED: HYDROCODON-ACE1 EA10 PO (12:47)
[2019-03-30 12:55] VITALS: BP 116/75; BMI 25.3
[2019-03-30 13:59] LABS: CKMB 6.3 U/L (0.0-3.6); CREATINE KINASE 327 UL (21-215); TROPONIN-I 0.047 ng/mL (0.000-0.060)
[2019-03-30 19:25] LABS: APPEARANCE CLEAR (CLEAR); BILIRUBIN NEGATIVE (NEGATIVE); COLOR STRAW (YELLOW); GLUCOSE NEGATIVE (NEGATIVE); KETONE NEGATIVE (NEGATIVE); NITRITE NEGATIVE (NEGATIVE); PROTEIN NEGATIVE (NEGATIVE); SPECIFIC GRAVITY 1.015 (1.005-1.020); UROBILINOGEN NORMAL (NORMAL)
[2019-03-30 19:31] LABS: UDS - AMPHET NEGATIVE QUAL (NEGATIVE); UDS - BARB NEGATIVE QUAL (NEGATIVE); UDS - BENZO POSITIVE QUAL (NEGATIVE); UDS - COCAINE POSITIVE QUAL (NEGATIVE); UDS - OPIATE NEGATIVE QUAL (NEGATIVE); UDS - PCP NEGATIVE QUAL (NEGATIVE); UDS - THC NEGATIVE QUAL (NEGATIVE)
--- NOTE | 2019-03-30 19:41 | NUR ---
RECIEVED BEDSIDE SHIFT REPORT. ALERT AND ORIENTED X4. C/O GENERAL PAIN AND ASKED WHAT SHE COULD HAVE. RECIEVED SEADRIFT AT 1715. TYLENOL GIVEN PER ORDERS. IV TO LEFT FA SL.. TELEMETRY IN PLACE. DENIES ANY OTHER NEEDS.
[2019-03-30 19:44] LABS: CKMB 6.6 U/L (0.0-3.6); CREATINE KINASE 278 UL (21-215); TROPONIN-I 0.029 ng/mL (0.000-0.060)
[2019-03-30 20:00] VITALS: BP 102/72
[2019-03-31] VITALS (7 sets, daily range): BP systolic 109–128; BP diastolic 71–85
[2019-03-31 02:05] LABS: CKMB 5.9 U/L (0.0-3.6); CREATINE KINASE 269 UL (21-215); TROPONIN-I 0.028 ng/mL (0.000-0.060)
[2019-03-31 03:01] LABS: BASOPHILS 0.2 % (0-2); EOSINOPHILS 0.5 % (0-7); HEMATOCRIT 42.4 % (36.0-48.0); HEMOGLOBIN 13.6 g/dL (12-16); IMMATURE GRANULOCYTES 0.3 % (0-5); LYMPHOCYTES 14.1 % (15-50); MCH 28.8 pg (26.0-34.0); MCHC 32.1 g/dL (31.0-37.0); MEAN PLATELET VOLUME 12.2 fL (7.4-10.4); MONOCYTES 1.9 % (2-11); PLATELET COUNT 224 10x3/uL (130-400); RBC 4.73 10x6/uL (4.00-5.40); RDW 14.7 % (11.5-14.5); WBC 9.9 10x3/uL (4.8-10.8)
[2019-03-31 03:02] LABS: MCV 89.6 fL (80.0-100.0)
[2019-03-31 03:30] LABS: ALBUMIN 2.8 g/dL (3.4-5.0); ALKALINE PHOSPHATASE 80 U/L (46-116); ALT (SGPT) 20 U/L (10-68); BILIRUBIN - TOTAL 0.35 mg/dL (0.2-1.3); CALC OSMOLALITY 283 mosm/kg (275-300); CALCIUM 8.4 mg/dL (8.5-10.1); CARBON DIOXIDE 21.2 mmol/L (21.0-32.0); CHLORIDE - SERUM 109 mmol/L (98-107); CREATININE - SERUM 0.8 mg/dL (0.6-1.3); GLUCOSE 158 mg/dL (74-106); POTASSIUM - SERUM 4.3 mmol/L (3.5-5.1); PROTEIN - SERUM 6.6 g/dL (6.4-8.2); SODIUM 141 mmol/L (136-145); UREA NITROGEN 12 mg/dL (7-18); eGFR NON AFRICAN AMERICAN 77 mL/min (90-120)
--- NOTE | 2019-03-31 07:00 | NUR ---
RECIEVE REPORT. ALERT AND ORIENTED X4. SITTING UP IN BED. REQUEST RT ELBOW TO BE REWRAPPED WITH PADDING. 4X4s PLACED ON ELBOW FENG WRAPPED. SINUS MATHIEU 54 WITH FIRST DEGREE BLOCK. PATIENT STATES, "YOU NEED TO GET THAT DOCTOR IN HERE TO SEE ME BECAUSE I'M READY TO GO HOME." ENCOURAGE PATIENCE. WILL TALK WITH DOCTOR YA. DENIES ANY OTHER NEEDS. CONTINUE PLAN OF CARE AND SAFETY PRECAUTIONS.
--- NOTE | 2019-03-31 19:00 | NUR ---
REPORT RECEIVED. PT A&O X4. SITTING UP IN BED RR EVEN AN UNLABORED ON RA. NO S/S OF DISTRESS AT THIS TIME. PT DENIES CHEST PAIN, SOB. CALL LIGHT IN REACH. SR X2. WILL CTM.
[2019-04-01 04:38] VITALS: BP 122/84
[2019-04-01 05:54] LABS: BASOPHILS 0.1 % (0-2); EOSINOPHILS 0.1 % (0-7); HEMATOCRIT 43.5 % (36.0-48.0); HEMOGLOBIN 14.3 g/dL (12-16); IMMATURE GRANULOCYTES 0.4 % (0-5); LYMPHOCYTES 11.6 % (15-50); MCH 29.1 pg (26.0-34.0); MCHC 32.9 g/dL (31.0-37.0); MCV 88.4 fL (80.0-100.0); MEAN PLATELET VOLUME 11.9 fL (7.4-10.4); MONOCYTES 2.3 % (2-11); NEUTROPHILS 85.5 % (40-80); PLATELET COUNT 229 10x3/uL (130-400); RBC 4.92 10x6/uL (4.00-5.40); RDW 14.7 % (11.5-14.5)
[2019-04-01 06:08] LABS: CALCIUM 8.9 mg/dL (8.5-10.1); CARBON DIOXIDE 23.3 mmol/L (21.0-32.0); CREATININE - SERUM 0.9 mg/dL (0.6-1.3); POTASSIUM - SERUM 4.3 mmol/L (3.5-5.1); WBC 12.4 10x3/uL (4.8-10.8)
--- NOTE | 2019-04-01 08:17 | NUR ---
ALERT AND ORIENTED. DENIES ANY NEEDS TELEMERTY SHOWS SB 51. REFUSES IV FLUID. SR UP WITH CALL LIGHT IN REACH
[2019-04-01 09:25] VITALS: BP 116/80
--- NOTE | 2019-04-01 11:12 | CN ---
PATIENT NAME:MAE CHAHAL MEDICAL RECORD: [id number] : 58 LOCATION:D. D.2119 ADMIT DATE: 03/30/19 ACCOUNT: [id number] CONSULTING PHYSICIAN: FRANCIA URRUTIA MD REFERRING PHYSICIAN: ROSAURA PAK MD DATE OF CONSULTATION: 03/31/2019 HISTORY OF PRESENT ILLNESS: A 59-year-old female with a known history of coronary artery disease, status post coronary artery bypass grafting, most recent intervention via Dr. Velasquez, drug-eluting stent February 26, has not felt well since that time. Continues to have chest pain, shortness of breath, left-sided weakness. Cardiac enzymes are negative. ECG shows nonspecific ST changes; however, this is unchanged from baseline. We are asked to see her concerning her cardiovascular status. PAST MEDICAL HISTORY: Includes: 1. History of hypertension. 2. Rheumatoid arthritis. 3. Coronary artery disease as described above. 4. Dyslipidemia. 5. Diabetes mellitus. MEDICATIONS: Include DiaBeta 2.5 b.i.d., prednisone, potassium supplementation 20 mEq every day, Pettibone 10/325 every 6 hours p.r.n., Neurontin 300 b.i.d., aspirin 81 every day, Xanax 1 p.o. b.i.d., lisinopril 10 every day, metoprolol 25 b.i.d., atorvastatin 20 every day, amlodipine 10 every day, Imdur 30 every day, Plavix 75 every day, methotrexate 15 mg weekly. ALLERGIES: No known drug allergies. SOCIAL HISTORY: Nonsmoker. Social drinker. Easily able to take care of her ADLs. REVIEW OF SYSTEMS: The patient reports easy bruising but reports no swollen glands. The patient reports no fever, no night sweats, no significant weight gain, no significant weight loss. No significant exercise tolerance. The patient reports no dry eyes, no irritation, no vision change. Patient reports no difficulty hearing and no ear pain. Patient reports no frequent nose bleeds or nose and sinus problems. Patient reports on arm pain on exertion. No shortness of breath while lying down. No history of heart murmur. Patient reports no cough, no wheezing or coughing up blood. Patient reports no abdominal pain, no vomiting. Normal appetite. No diarrhea and not vomiting blood. No nausea and no constipation. Patient reports no incontinence. No difficulty urinating. No hematuria. No increased frequency. Patient reports no muscle aches. No weakness, no arthralgias, no back pain. No swelling of the extremities. Patient reports no abnormal mole, no jaundice, no rashes. Reports no loss of consciousness. No weakness and no numbness. No seizures, dizziness, or headaches. The patient reports no depression, no sleep disturbance, feeling safe in a relationship and no alcohol abuse. Patient reports on fatigue. Reports no runny nose or sinus pressure. No itching, no hives, and no frequent sneezing. PHYSICAL EXAMINATION: GENERAL: Pleasant female, in no acute distress. VITAL SIGNS: Blood pressure 116/82, pulse 50 and regular. CONSULT REPORT [id number] MAE CHAHAL HEENT: Normocephalic, atraumatic. NECK: No JVD or bruit. HEART: Regular. A II/ systolic ejection murmur. LUNGS: Good air excursion. ABDOMEN: Soft, nontender. EXTREMITIES: Pulses 2+. No edema. NEUROLOGIC: Grossly intact. DIAGNOSTIC DATA: ECG is without acute change. As described above, cardiac enzymes are negative. IMPRESSION: Doubt acute stent thrombosis with the absence of ECG changes and elevated cardiac enzymes. Does not appear to have residual disease on review of films. We will check carotid Doppler given her left-sided weakness and dizziness. Actually might benefit given her multiple issues from cardiac rehab at some point. Agree with management otherwise. TRANSINT:[id number] Voice Confirmation ID: [id number] DOCUMENT ID: [id number] FRANCIA URRUTIA MD at 1112 CC: [id number] DICTATION DATE: 03/31/19919 BREAST PULLER: 03/31/19954 ADM IN [facility] [address] [place] [address]
[2019-04-01 12:00] VITALS: BP 114/80
[2019-04-01 14:39] VITALS: Ht 179.1 cm; Wt 81.2 kg
[2019-04-01] MEDS ORDERED: XANAX1 MG PO (14:51)
[2019-04-01] MEDS ORDERED: NICODERM C1 PATCH .1 TRANSDERM (14:52)
[2019-04-01] MEDS ORDERED: COLCRYS0.6 MG PO (14:52)
--- NOTE | 2019-04-01 15:51 | NUR ---
WRITTEN SCRIPT FOR XANAX 1 MG #20 GIVEN TO PATIENT WITH COPY TO CHART.
--- NOTE | 2019-04-02 15:17 | EC ---
PATIENT:MAE CHAHAL DATE OF SERVICE: 03/30/19 SEX: F MEDICAL RECORD: [id number] DATE OF : 58 LOCATION:D. D.211 AGE OF PATIENT: 59 ADMISSION DATE: 03/30/19 REFERRING PHYSICIAN: INTERPRETING PHYSICIAN: FRANCIA URRUTIA MD ECHOCARDIOGRAM REPORT ECHO CHARGES 4 ECHO COMPLETE Date: 03/31/19 CLINICAL DIAGNOSIS: CP ECHOCARDIOGRAPHIC MEASUREMENTS (adult normal given) AC root (d.<3.7cm) 3.0 cm LV Septum d (<1.2 cm> 1.1 cm Valve Excursion 1.9 cm LV Septum (systole) 1.6 cm Left Atria (s.<4.0cm> 4.3 cm LVPW d(<1.2cm) 0.9 cm RV (d.<2.3cm) 3.1 cm LVPW (sytole) 1.5 cm LV diastole(<5.6CM) 5.5 cm MV E-F(>70mm/sec) cm LV systole 3.5 cm LVOT Diameter 2.0 cm MV exc.(>10mm) cm Est.ejection fraction (50-75%) % DOPPLER: LVIT cm/sec A 63 cm/sec E 57 cm/sec LA cm/sec RVSP 33.7 mmHg LVOT 107 cm/sec AOP1/2T m/s Asc. Ao 147 cm/sec RVOT 73 cm/sec RA cm/sec PA 85 cm/sec AV Gradient Peak 8.6 mmHg AV Mean 4.4 mmHg AV Area 2.2 cm MV Gradient Peak 6.5 mmHg MV Mean 2.9 mmHg MV Area cm COMMENTS: Staffing Branch Manager: Murphy DYER Goat Herder: 3 Dr. Burciaga TAPE# PACS Pericardial Effusion N DATE OF SERVICE: Adequate 2D, color flow, spectral Doppler, and M-mode. No LVH. LV internal dimension is normal. Wall motion is normal. EF is greater than or equal to 55%. Aortic valve is tricuspid. No evidence of stenosis by Doppler interrogation. Left atrium is dilated at 4.3 cm. Mitral valve shows no prolapse. Mild MR. Right-sided chambers grossly normal. Mild TR. TRANSINT:[id number] Voice Confirmation ID: [id number] DOCUMENT ID: [id number] ECHOCARDIOGRAM REPORT [id number] MAE CHAHAL FRANCIA URRUTIA MD at 1517 CC: [id number] DICTATION DATE: 04/01/19905 IT PORTFOLIO MANAGER: 04/01/19 1036 DIS IN 04/01/19 [facility] [address] [place] [address]
== END 2019-04-01 17:13 | disposition home or self-care (01) ==
LOC: D.ER 09:57 → OBSVTIME 12:00 → D.M2 12:00
PROVIDERS: Family Medicine; ADMIT Internal Medicine Nephrology; ATTEND Internal Medicine Nephrology
DX: I25.110 Atherosclerotic heart disease of native coronary artery with unstable angina pectoris (principal); E11.9 Type 2 diabetes mellitus without complications; I42.9 Cardiomyopathy, unspecified; E78.5 Hyperlipidemia, unspecified; I10 Essential (primary) hypertension; M25.522 Pain in left elbow; M25.521 Pain in right elbow; F41.9 Anxiety disorder, unspecified; R42 Dizziness and giddiness; R53.1 Weakness

== ENCOUNTER 2019-04-11 11:02 | Emergency (ER) | payer MEDICARE ==
[~2019-04-11] VITALS: Ht 179.1 cm; Wt 90.0 kg
[~2019-04-11 11:02] MED LIST changes: +COLCRYS0.6 MG PO; +HYDROCODON-ACE1 EA10 PO; +NICODERM C1 PATCH .1 TRANSDERM
[2019-04-11 11:03] VITALS: Ht 179.1 cm; Wt 90.0 kg
[2019-04-11 11:47] LABS: BASOPHILS 0.2 % (0-2); EOSINOPHILS 1.5 % (0-7); HEMATOCRIT 44.6 % (36.0-48.0); HEMOGLOBIN 14.8 g/dL (12-16); IMMATURE GRANULOCYTES 0.6 % (0-5); LYMPHOCYTES 28.7 % (15-50); MCH 29.8 pg (26.0-34.0); MCHC 33.2 g/dL (31.0-37.0); MCV 89.7 fL (80.0-100.0); MEAN PLATELET VOLUME 11.4 fL (7.4-10.4); MONOCYTES 7.8 % (2-11); NEUTROPHILS 61.2 % (40-80); PLATELET COUNT 222 10x3/uL (130-400); RBC 4.97 10x6/uL (4.00-5.40); RDW 15.2 % (11.5-14.5); WBC 9.1 10x3/uL (4.8-10.8)
[2019-04-11 12:03] LABS: CALC OSMOLALITY 281 mosm/kg (275-300); CALCIUM 8.5 mg/dL (8.5-10.1); CARBON DIOXIDE 27.1 mmol/L (21.0-32.0); CHLORIDE - SERUM 109 mmol/L (98-107); CREATININE - SERUM 0.9 mg/dL (0.6-1.3); SODIUM 142 mmol/L (136-145); UREA NITROGEN 12 mg/dL (7-18); eGFR NON AFRICAN AMERICAN 68 mL/min (90-120)
[2019-04-11 12:04] LABS: APTT 29.1 SECONDS (22.8-39.4); INR 1.02 (0.85-1.17); PROTIME 12.9 SECONDS (11.6-15.0)
[2019-04-11 12:06] LABS: GLUCOSE 86 mg/dL (74-106)
[2019-04-11 12:18] LABS: ALBUMIN 3.1 g/dL (3.4-5.0); ALKALINE PHOSPHATASE 83 U/L (46-116); ALT (SGPT) 20 U/L (10-68); BILIRUBIN - TOTAL 0.65 mg/dL (0.2-1.3); CREATINE KINASE 217 UL (21-215); MAGNESIUM - SERUM 1.9 mg/dL (1.8-2.4); PROTEIN - SERUM 6.7 g/dL (6.4-8.2); TROPONIN-I 0.026 ng/mL (0.000-0.060)
[2019-04-11] MEDS ORDERED: INDOCIN25 MG PO (12:18)
[2019-04-11 13:03] VITALS: BP 150/103
== END 2019-04-11 12:52 | disposition home or self-care (01) ==
LOC: D.ER 11:02
PROVIDERS: Emergency Medicine
DX: R07.9 Chest pain, unspecified (principal); I25.10 Atherosclerotic heart disease of native coronary artery without angina pectoris

== ENCOUNTER 2019-07-30 16:53 | Emergency (ER) | payer MEDICARE ==
[~2019-07-30] VITALS: Ht 179.1 cm; Wt 89.5 kg
[~2019-07-30 16:53] MED LIST changes: +CYCLOBENZAPRINE10 MG PO; +INDOCIN25 MG PO
[2019-07-30 16:58] VITALS: Ht 179.1 cm; Wt 89.5 kg
[2019-07-30] MEDS ORDERED: METHOCARBAMOL500 MG PO (18:11)
[2019-07-30] MEDS ORDERED: VOLTAREN25 MG PO (18:11)
[2019-07-30 19:03] VITALS: BP 168/108
== END 2019-07-30 19:03 | disposition home or self-care (01) ==
LOC: D.ER 16:53
DX: M79.662 Pain in left lower leg (principal); M79.661 Pain in right lower leg; E11.9 Type 2 diabetes mellitus without complications; E07.9 Disorder of thyroid, unspecified; I10 Essential (primary) hypertension; I25.2 Old myocardial infarction; Z79.84 Long term (current) use of oral hypoglycemic drugs

== ENCOUNTER 2020-10-25 12:46 | Emergency (ER) | payer MEDICARE ==
[~2020-10-25] VITALS: Ht 179.1 cm; Wt 91.4 kg
[~2020-10-25 12:46] MED LIST changes: +METHOCARBAMOL500 MG PO; +VOLTAREN25 MG PO
[2020-10-25 12:50] VITALS: Ht 179.1 cm; Wt 91.4 kg
[2020-10-25 13:46] LABS: BILIRUBIN NEGATIVE (NEGATIVE); KETONE NEGATIVE (NEGATIVE); NITRITE NEGATIVE (NEGATIVE); UROBILINOGEN NORMAL mg/dL (< 2)
[2020-10-25 13:47] LABS: SQUAMOUS EPITHELIAL 0-5 HPF (0-4); WHITE CELLS - URINE NONE SEEN HPF (0-4)
[2020-10-25 14:01] LABS: CALCIUM 9.1 mg/dL (8.5-10.1); CARBON DIOXIDE 30.1 mmol/L (21.0-32.0); CHLORIDE - SERUM 107 mmol/L (98-107); POTASSIUM - SERUM 3.9 mmol/L (3.5-5.1); SODIUM 143 mmol/L (136-145); UREA NITROGEN 17 mg/dL (7-18); eGFR NON AFRICAN AMERICAN 60 mL/min (90-120)
[2020-10-25 14:02] LABS: BASOPHILS 0.9 % (0-2); HEMATOCRIT 46.1 % (36.0-48.0); HEMOGLOBIN 15.2 g/dL (12-16); MCH 28.4 pg (26.0-34.0); MCV 86.2 fL (80.0-100.0); MEAN PLATELET VOLUME 9.3 fL (7.4-10.4); MONOCYTES 6.8 % (2-11); NEUTROPHILS 70.3 % (40-80); RBC 5.35 10x6/uL (4.00-5.40); RDW 15.3 % (11.5-14.5); WBC 12.9 10x3/uL (4.8-10.8)
[2020-10-25 14:03] LABS: PLATELET COUNT 271 10x3/uL (130-400)
[2020-10-25 14:10] LABS: ALBUMIN 3.4 g/dL (3.4-5.0); ALKALINE PHOSPHATASE 75 U/L (30-120); ALT (SGPT) 24 U/L (10-68); BILIRUBIN - TOTAL 0.59 mg/dL (0.2-1.3); MAGNESIUM - SERUM 2.3 mg/dL (1.8-2.4); PROTEIN - SERUM 7.6 g/dL (6.4-8.2)
[2020-10-25 14:12] LABS: CALC OSMOLALITY 284 mosm/kg (275-300); GLUCOSE 58 mg/dL (74-106); TROPONIN-I < 0.017 ng/mL (0.000-0.060)
[2020-10-25 16:16] VITALS: BP 128/89
== END 2020-10-25 16:18 | disposition home or self-care (01) ==
LOC: D.ER 12:46
PROVIDERS: Family Medicine
DX: R42 Dizziness and giddiness (principal); E16.2 Hypoglycemia, unspecified; R53.1 Weakness; I10 Essential (primary) hypertension; E11.9 Type 2 diabetes mellitus without complications; I25.2 Old myocardial infarction; Z79.84 Long term (current) use of oral hypoglycemic drugs